=== PATIENT | female | born 1990 | race Two or more races ===

== ENCOUNTER 2023-11-06 14:01 | Outpatient (REF) | payer OTHER, SELFPAY | END 2023-11-06 14:02 | disposition home or self-care (01) | LOC: LAB 14:01 | PROVIDERS: Visit Provider Obstetrics & Gynecology | DX: N92.0 Excessive and frequent menstruation with regular cycle (principal) | CPT/HCPCS: 88305 ==

== ENCOUNTER 2023-11-17 13:21 | Outpatient (OUT) | payer OTHER, SELFPAY ==
--- NOTE | 2023-11-17 13:52 | PM.PRESUREVA ---
History of Present Illness History of Present Illness Chief complaint: REQ STERILIZATION, PELVIC PAIN, ABN UTERINE BLEEDI Narrative: Patient presents for preadmission testing. Please see HPI from Dr. Issa dated 11/06/2023. Review of Systems ROS Narrative REVIEW OF SYSTEMS: Negative except as stated in HPI, ten or more systems reviewed. Constitutional: No fever , chills, weakness ENT: No sore throat or epistaxis Cardiovascular: No edema, chest pain, palpitations, or activity intolerance Respiratory: No shortness of breath, cough, or wheezing Musculoskeletal: No joint pain or swelling Genitourinary: No dysuria or hematuria Neurological: No numbness, tingling, weakness, or headache Psychiatric: No mood changes PFSH PFS Medical History (Updated 11/17/23 @ 13:43 by Vivian Bledsoe NP) PTSD (post-traumatic stress disorder) ?F43.10 - Post-traumatic stress disorder, unspecified (ICD-10) Panic attacks ?F41.0 - Panic disorder [episodic paroxysmal anxiety] (ICD-10) COVID-19 ?U07.1 - COVID-19 (ICD-10) Pneumonia ?J18.9 - Pneumonia, unspecified organism (ICD-10) Migraine ?G43.909 - Migraine, unspecified, not intractable, without status migrainosus (ICD-10) Kidney stones ?N20.0 - Calculus of kidney (ICD-10) Bipolar 1 disorder ?F31.9 - Bipolar disorder, unspecified (ICD-10) HPV (human papilloma virus) infection ?B97.7 - Papillomavirus as the cause of diseases classified elsewhere (ICD-10) Breast lump ?N63.0 - Unspecified lump in unspecified breast (ICD-10) Pelvic pain ?R10.2 - Pelvic and perineal pain (ICD-10) Abnormal uterine bleeding (AUB) ?N93.9 - Abnormal uterine and vaginal bleeding, unspecified (ICD-10) Menorrhagia ?N92.0 - Excessive and frequent menstruation with regular cycle (ICD-10) Request for sterilization ?Z30.2 - Encounter for sterilization (ICD-10) Surgical History (Updated 11/17/23 @ 13:32 by Vivian Bledsoe NP) History of cholecystectomy ?Z90.49 - Acquired absence of other specified parts of digestive tract (ICD-10) H/O breast biopsy ?Z98.890 - Other specified postprocedural states (ICD-10) Family History (Updated 11/17/23 @ 13:43 by Vivian Bledsoe NP) Other Breast cancer Family history of diabetes mellitus Family history of heart disease Family history of hypertension Social History (Updated 11/17/23 @ 13:40 by Vivian Bledsoe NP) Within the past year, how often did you have a drink containing alcohol: monthly or less Smoking status: Never smoker Non-prescribed substance use: denies use Previous occupational history: [employer] Highest level of school completed/degree received: high school graduate Meds Home Medications and Allergies Home Medications Medication Instructions Recorded Confirmed Type divalproex 500 mg tablet,delayed 500 mg PO DAILY 11/17/23 11/17/23 History release (Depakote) norgestimate 0.25 mg-ethinyl 1 tab PO DAILY 11/17/23 11/17/23 History estradiol 35 mcg tablet (Estarylla) Allergies Allergy/AdvReac Type Severity Reaction Status Date / Time No Known Drug Allergies Allergy Verified 11/17/23 13:37 Exam Narrative Exam Narrative: Constitutional: Awake, alert, comfortable, well-appearing, nontoxic, interactive, vital signs as charted Head: Normocephalic, atraumatic Neck: Supple, normal appearance, normal range of motion, no meningeal signs, no lymphadenopathy Respiratory: No respiratory distress, breath sounds clear Cardiovascular: Regular rate and rhythm, strong and regular heart tones Abdomen: Nontender, normal bowel sounds, soft, no CVA tenderness Musculoskeletal: Normal gait, no swelling or edema Skin: No rashes or induration, no lesions, only visible skin inspected Neuro: No neurological deficits, normal sensation Psychiatric: Oriented ?3, normal affect Assessment and Plan Assessment and Plan (1) Abnormal uterine bleeding (AUB): (2) Menorrhagia: (3) Request for sterilization: (4) Pelvic pain: Plan Robot assisted Bilateral laparoscopic salpingectomy, endometrial ablation, [place] scheduled with Dr. Issa 12/01/2023.
== END 2023-11-17 13:22 | disposition home or self-care (01) ==
LOC: PST 13:22
PROVIDERS: Visit Provider Obstetrics & Gynecology
DX: Z01.818 Encounter for other preprocedural examination (principal); R10.2 Pelvic and perineal pain; N92.0 Excessive and frequent menstruation with regular cycle; N93.9 Abnormal uterine and vaginal bleeding, unspecified
CPT/HCPCS: G0463

== ENCOUNTER 2023-11-29 10:29 | Day surgery (SDC) | payer OTHER, SELFPAY ==
[2023-11-17 13:51] VITALS: BP 125/82; PULSE 82; RESP 16; TEMP 36.4; O2SAT 97; BMI 28.9
[2023-11-29] VITALS (11 sets, daily range): BP systolic 96–127; BP diastolic 60–95; PULSE 74–113; RESP 13–25; TEMP 36.6–36.9; O2SAT 92–98; BMI 26.8
--- OUTSIDE RECORDS SUMMARY | 2023-11-29 10:33 | XMS_ITS | CCD ---
Author Name Unknown Address [address] [place] [address] Organization [facility] Care Team Providers Care Celery Tier Name Role Phone YvesusamaDO Vishnu reddy Attending Provider [phone] REYNA Catalan Primary Care Provider STEPHANIE CATALAN Primary Care Unavailable ALAYNA, STEPHANIE Admitting Unavailable ALAYNA, STEPHANIE Attending Unavailable ALAYNA, STEPHANIE Primary Care Unavailable ALAYNA, STEPHANIE Admitting Unavailable ALAYNA, STEPHANIE Attending Unavailable ALAYNA, STEPHANIE Consulting Unavailable ALAYNA, STEPHANIE Primary Care Unavailable ALAYNA, STEPHANIE Admitting Unavailable ALAYNA, STEPHANIE Attending Unavailable ALAYNA, STEPHANIE Consulting Unavailable ALAYNA, STEPHANIE Primary Care Unavailable ALAYNA, STEPHANIE Admitting Unavailable ALAYNA, STEPHANIE Attending Unavailable ALAYNA, STEPHANIE S Primary Care Unavailable MARIBETH SINGER Attending Unavailable MARIBETH SINGER Attending Unavailable MARIBETH SINGER Referring Unavailable ALAYNA, STEPHANIE S Primary Care Unavailable TeresaStephanie coronel Unavailable SHAUNA ISSA Attending Unavailable SHAUNA ISSA Attending Unavailable ALLAN WEBB Attending Unavailable REYNA Catalan Primary Care Provider Shauna Issa Attending Provider [phone] Stephanie Catalan Primary Care Unavailable Shauna Issa Attending Unavailable Shauna Issa Admdonald Unavailable Medications Current Medications Medication Drug Class(es) Dates Sig (Normalized) Sig (Original) [id number] actuat albuterol 0.09 mg/actuat metered dose inhaler (2 sources) beta2-Adrenergic Agonist Start: 10-04-2023 take 2 puff(s) by inhalation four times daily as needed Albuterol Sulfate HFA 108 (90 Base) MCG/ACT 2 puffs Inhalation 4 times a day prn Sep, Active take 2 puff(s) by mo uth every four hours as needed for wheezing Albuterol Sulfate HFA 108 (90 Base) MCG/ACT INHALE 2 PUFFS BY MOUTH EVERY 4 HOURS NEEDED FOR WHEEZING Inhalation for 16 Days Active amoxicillin 875 mg / clavulanate 125 mg oral tablet (1 source) Penicillin-class Antibacterial Start: 10-04-2023 take 1 tablet by mouth every twelve hours Amoxicillin-Pot Clavulanate 875-125 MG 1 tablet Orally every 12 hrs for 10 day(s) Sep, Active benzonatate 200 mg oral capsule (1 source) Non-narcotic Antitussive Start: 10-04-2023 take 1 capsule by mouth every eight hours Benzonatate 200 MG 1 capsule Orally Three times a day Sep, Active codeine phosphate 2 mg/ml / guaiFENesin 20 mg/ml oral solution (1 source) Opioid Agonist guaiFENesin-Code ine 100-10 MG/5ML TAKE 5 ML BY MOUTH THREE TIMES DAILY FOR UP TO 5 DAYS NEEDED FOR COUGH Oral for 8 Days Active estarylla 0.25-35 mg-mcg tablet (1 source) Progestin, Estrogen take 1 tablet by mouth in the morning Estarylla 0.25-35 MG-MCG TAKE 1 TABLET BY MOUTH IN THE MORNING Oral for 84 Days Active lamoTRIgine (1 source) Mood Stabilizer, Anti-epileptic Agent LaMICtal Active phentermine hydrochloride 37.5 mg oral tablet (1 source) Sympathomimetic Amine Anorectic take 1 tablet by mouth once daily before breakfast Phentermine HCl 37.5 MG TAKE 1 TABLET BY MOUTH EVERY DAY BEFORE BREAKFAST Oral for 30 Days Active predniSONE 20 mg oral tablet (2 sources) Start: 10-04-2023 take 2 tablets by mouth every twenty-four hours predniSONE 20 MG 2 tablets Orally Once a day for 5 Sep, Active predniSONE 10 MG Oral for 5 Days Active Completed/Discontinued Medications Medication Drug Class(es) Dates Sig (Normalized) Sig (Original) hydrocortisone 10 mg/ml / neomycin 3.5 mg/ml / polymyxin b 13535 unt/ml otic solution (1 source) Aminoglycoside Antibacterial, Polymyxin-class Antibacterial, Corticosteroid Start: 02-22-2021 Neomycin-Polymyx in-HC 3.5-52398-5 4 drops into affected ear Otic Three times a day for 7 day(s) Feb, Not-Taking/PRN Levonorgestrel (1 source) Progestin, Progestin-containing Intrauterine Device Mirena Not-Taking/PRN oseltamivir 75 mg oral capsule (1 source) Neuraminidase Inhibitor Start: 09-04-2018 take 1 capsule by mouth every twelve hours Tamiflu 75 MG 1 capsule Orally Twice a day for 5 day(s) Aug, Not-Taking/PRN Problems Problem Classification Problem Date Documented Da te Episodic/Chronic Acute bronchitis (1 source) Acute bronchitis, unspecified Episodic Cardiac dysrhythmias (5 sources) Tachycardia, unspecified; Translations: [TACHYCARDIA UNSPECIFIED] Onset: 07-01-2022 Episodic Other lower respiratory disease (1 source) Cough Onset: 09-26-2023 Episodic Otitis media and related conditions (1 source) Otitis media, unspecified, left ear Episodic Pneumonia (except that caused by tuberculosis or sexually transmitted disease) (1 source) Pneumonia, unspecified organism; Translations: [Pneumonia, unspecified organism] Onset: 09-26-2023 Episodic Unclassified (1 source) COUGH, CONGESTION, VOMITING Onset: 09-26-2023 Results Test Name Value Interpretation Reference Range Facility [facility] 11-06-2023 L Specimen: [id number] Received: 11/07/23 Status: BRANDON Meeks Num: [id number] Spec Type: Surgical Subm Dr: Shauna Issa Tissues: A Endometrium - Biopsy (EMB) Procedures: HE/2, Gross/Micro L4 Age/ Patient Sex Location Account Attending Physician Liv Fortune 33/F LABELL [id number] Shauna Issa SPEC NUM: [id number] RECD: 11/07/23 STATUS: BRANDON MEEKS NUM: [id number] LUDWIG: 11/06/23- SUBM DR: Shauna Issa ENTERED: 11/07/[address]: Modesta,Lab SPEC TYPE: Surgical DEPT: MARICRUZ OLIVA ORDERED: HE/2, Gross/Micro L4 ORDERED: HE/2, Gross/Micro L4 Pathological Diagnosis Endometrium, Curettage: Chronic endometritis with Stromal Breakdown. Clinical Information Menorrhagia Gross Description Received in formalin labeled with the patient's name, date of and endometrial biopsy (per requisition) is a 3.0 x 2.5 x 0.2 cm aggregate of pale-meek tissue fragments. Entirely submitted in one cassette labeled A1. CPT Codes 98370 ---- ---- Specimen: [id number] Received: 11/07/23 Status: BRANDON Meeks Num: [id number] Spec Type: Surgical Subm Dr: Shauna Issa Tissues: A Endometrium - Biopsy (EMB) Procedures: HE/Ronnell, Gross/Micro L4 ---- Patient: Liv Fortune [id number] (Continued) ---- Signed (signature on file) Abeba Guzman MD 11/12/23 2142 [facility] CBC AND AUTO DIFFon 09-26-19 ABSOLUTE BASOPHIL 0.1 X10E9/L Normal 0.0-0.2 [facility] Comment on above: Performed By: #### 4 8066-5, CBCA #### [facility] [place] ([id number]) [address] [place] [address] ABSOLUTE NEUTROPHIL 10.2 X10E9/L High 1.5-6.6 [facility] Comment on above: Performed By: #### 4 8066-5, CBCA #### [facility] [place] ([id number]) [address] [place] [address] 28847 Basophils/100 WBC (Bld) 0.5 % Normal [facility] Comment on above: Performed By: #### 4 8066-5, CBCA #### [facility] [place] ([id number]) [address] [place] [address] 89426 Eosinophils (Bld) [#/Vol] 0.2 10*3/uL Normal 0.0-0.4 [facility] Comment on above: Performed By: #### 4 8066-5, CBCA #### [facility] [place] ([id number]) [address] [place] [address] 42112 Eosinophils/100 WBC (Bld) 1.3 % Normal [facility] Comment on above: Performed By: #### 4 8066-5, CBCA #### [facility] [place] ([id number]) [address] [place] [address] [place] [address] Erythrocyte distribution width (RBC) [Ratio] 12.0 % Normal 11.5-15.0 [facility] Comment on above: Performed By: #### 4 8066-5, CBCA #### [facility] [place] ([id number]) [address] [place] [address] 52116 Hematocrit (Bld) [Volume fraction] 40.6 % Normal 35-47 [facility] Comment on above: Performed By: #### 4 8066-5, CBCA #### [facility] [place] ([id number]) [address] [place] [address] 01537 Hemoglobin (Bld) [Mass/Vol] 14.0 g/dL Normal 11.7-15.5 [facility] Comment on above: Performed By: #### 4 8066-5, CBCA #### [facility] [place] ([id number]) [address] [place] [address] 56029 Lymphocytes (Bld) [#/Vol] 2.1 10*3/uL Normal 1.0-3.5 [facility] Comment on above: Performed By: #### 4 8066-5, CBCA #### [facility] [place] ([id number]) [address] [place] [address] 47756 Lymphocytes/100 WBC (Bld) 15.1 % Normal [facility] Comment on above: Performed By: #### 4 8066-5, CBCA #### [facility] [place] ([id number]) [address] [place] [address] 45815 MCH (RBC) [Entitic mass] 31.4 pg Normal 27-34 [facility] Comment on above: Performed By: #### 4 8066-5, CBCA #### [facility] [place] ([id number]) [address] [place] [address] 84951 MCHC (RBC) [Mass/Vol] 34.4 g/dL Normal 32-36 [facility] Comment on above: Performed By: #### 4 8066-5, CBCA #### [facility] [place] ([id number]) [address] [place] [address] 03649 MCV (RBC) [Entitic vol] 91 fL Normal 80-100 [facility] Comment on above: Performed By: #### 4 8066-5, CBCA #### [facility] [place] ([id number]) [address] [place] [address] 23712 Monocytes (Bld) [#/Vol] 1.2 10*3/uL High 0-0.9 [facility] Comment on above: Performed By: #### 4 8066-5, CBCA #### [facility] [place] ([id number]) [address] [place] [address] 35816 Monocytes/100 WBC (Bld) 8.6 % Normal [facility] Comment on above: Performed By: #### 4 8066-5, CBCA #### [facility] [place] ([id number]) [address] [place] [address] 66292 Neutrophils/100 WBC (Bld) 74.5 % Normal [facility] Comment on above: Performed By: #### 4 8066-5, CBCA #### [facility] [place] ([id number]) [address] [place] [address] 74297 Platelet mean volume (Bld) [Entitic vol] 8.3 fL Normal 7-12 [facility] Comment on above: Performed By: #### 4 8066-5, CBCA #### [facility] [place] ([id number]) [address] [place] [address] 17101 Platelets (Bld) [#/Vol] 301 10*3/uL Normal 150-450 [facility] Comment on above: Performed By: #### 4 8066-5, CBCA #### [facility] [place] ([id number]) [address] [place] [address] 94303 RBC COUNT 4.45 X10E12/L Normal 3.80-5.20 [facility] Comment on above: Performed By: #### 4 8066-5, CBCA #### [facility] [place] ([id number]) [address] [place] [address] 58974 WBC (Bld) [#/Vol] 13.7 10*3/uL High 4.0-11.0 [facility] Comment on above: Performed By: #### 4 8066-5, CBCA #### [facility] [place] ([id number]) [address] [place] [address] 98628 COMPREHENSIVE METABOLIC PANE Eddie 09-26-2023 Albumin [Mass/Vol] 3.7 g/dL Normal 3.2-5.3 [facility] Comment on above: Performed By: #### Jenny FORTUNE, 0-3 #### [facility] [place] ([id number]) [address] [place] [address] 57051 ALP [Catalytic activity/Vol] 77 U/L Normal 39-130 [facility] Comment on above: Performed By: #### Jenny FORTUNE, 0-3 #### [facility] [place] ([id number]) [address] [place] [address] 77263 ALT [Catalytic activity/Vol] 21 U/L Normal 0-31 [facility] Comment on above: Performed By: #### Jenny FORTUNE, 3040-3 #### [facility] [place] ([id number]) [address] [place] [address] 05208 Anion gap [Moles/Vol] 12 mmol/L Normal 5-15 [facility] Comment on above: Performed By: #### Jenny FORTUNE, 3040-3 #### [facility] [place] ([id number]) [address] [place] [address] 88511 AST [Catalytic activity/Vol] 22 U/L Normal 0-41 [facility] Comment on above: Performed By: #### Jenny FORTUNE, 0-3 #### [facility] [place] ([id number]) [address] [place] [address] 46916 Bilirubin [Mass/Vol] 0.5 mg/dL Normal 0.3-1.2 [facility] Comment on above: Performed By: #### Jenny FORTUNE, 3039-3 #### [facility] [place] ([id number]) [address] [place] [address] 98759 Calcium [Mass/Vol] 8.8 mg/dL Normal 8.5-10.5 [facility] Comment on above: Performed By: #### Jenny FORTUNE, 3039-11 #### [facility] [place] ([id number]) [address] [place] [address] 99577 Chloride [Moles/Vol] 98 mmol/L Normal 98-109 [facility] Comment on above: Performed By: #### Jenny FORTUNE, 3 #### [facility] [place] ([id number]) [address] [place] [address] 32924 CO2 [Moles/Vol] 24 mmol/L Normal 22-32 [facility] Comment on above: Performed By: #### Jenny FORTUNE, 3 #### [facility] [place] ([id number]) [address] [place] [address] 77199 Creatinine [Mass/Vol] 0.61 mg/dL Normal 0.40-1.00 [facility] Comment on above: Result Comment: METH OD TRACEABLE TO IDMS STANDARD Performed By: #### Jenny FORTUNE, 3 #### [facility] [place] ([id number]) [address] [place] [address] 85654 eGFR (CKD-EPI) NON-RACE DEPENDENT >90 Normal >59 [facility] Comment on above: Result Comment: Reported eGFR is based on the CKD-EPI 2020 equation that does not use a race coefficient. Performed By: #### Jenny FORTUNE, 3039-3 #### [facility] [place] ([id number]) [address] [place] [address] 34096 Glucose [Mass/Vol] 103 mg/dL High 65-99 [facility] Comment on above: Performed By: #### Jenny FORTUNE, 3040-3 #### [facility] [place] ([id number]) [address] [place] [address] 56960 Potassium [Moles/Vol] 3.4 mmol/L Low 3.5-5.0 [facility] Comment on above: Performed By: #### Jenny FORTUNE, 3040-3 #### [facility] [place] ([id number]) [address] [place] [address] 32687 Protein [Mass/Vol] 7.2 g/dL Normal 6.0-8.0 [facility] Comment on above: Performed By: #### Jenny FORTUNE, 3040-3 #### [facility] [place] ([id number]) [address] [place] [address] 42028 Sodium [Moles/Vol] 134 mmol/L Normal 134-146 [facility] Comment on above: Performed By: #### Jenny FORTUNE, 3040-3 #### [facility] [place] ([id number]) [address] [place] [address] 80152 Urea nitrogen [Mass/Vol] 10 mg/dL Normal 5-23 [facility] Comment on above: Performed By: #### Jenny FORTUNE, 3040-3 #### [facility] [place] ([id number]) [address] [place] [address] 84287 Fibrin D-dimer DDU (PPP) [Ma ss/Vol]on 09-26-2023 D DIMER 194 ng/mL DDU Normal <255 [facility] Comment on above: Result Comment: Results <255 ng/mL DDU: The presence of a VTE can safely be excluded with a negative D-Dimer result and Wells score. A negative result doesn't exclude the possibility of DIC. The test be repeated along with other diagnostic tests if the patient's symptoms persist or worsen. [email or web address] Performed By: #### 4 8066-5, CBCA #### [facility] [place] ([id number]) [address] [place] [address] LIPASEon 09-26-2023 Lipase [Catalytic activity/Vol] 32 U/L Normal 17-40 [facility] Comment on above: Performed By: #### C MP, 3040-3 #### [facility] [place] ([id number]) [address] [facility], [place] [address] SARS/FLU A+B/RSV by NAAT/Mol ecularon 09-26-2023 SARS/FLU A+B/RSV by NAAT/Molecular FLU A PCR Negative (qualifier value) FLU B PCR Negative (qualifier value) RSV by PCR Negative (qualifier value) SARS CoV 2 Not detected (qualifier value) NOTE The Xpert Xpress SARS-CoV-2/Flu/RSV Plus test is a rapid, multiplexed real-time RT-PCR test intended for the simultaneous qualitative detection and differentiation of SARS-CoV-2, influenza A, influenza B and respiratory syncytial virus (RSV) viral RNA from individuals suspected of respiratory viral infection consistent with COVID-19 by their healthcare provider. This test has not been validated in asymptomatic patients. The Xpert Xpress SARS-CoV-2 test is intended for use by qualified and trained operators who are performing tests using either [employer] or [employer] systems and is limited to laboratories that meet the CLIA requirements to perform high and moderate complexity tests. The Xpert Xpress SARS-CoV-2/Flu/RSV Plus is only for use under the Food and Drug Administration's Emergency Use Authorization. Results are for the simultaneous detection and differentiation of SARS-CoV-2, influenza A, influenza B and RSV nucleic acids in clinical specimens. SARS-CoV-2, influenza A, influenza B and RSV RNA identified by this test are generally detectable in upper respiratory samples during the acute phase of infection. Positive results are indicative of the presence of the identified virus, but do not rule out bacterial infection or co-infection with other pathogens not detected by this test. Clinical correlation with patient history and other diagnostic information is necessary to determine patient infection status. The agent detected may not be the definite cause of disease. Negative results do not preclude SARS-CoV-2, influenza A, influenza B and RSV infection and should not be used as the sole basis for treatment or other patient management decisions. Negative results must be combined with clinical observations, patient history and epidemiological information. An Invalid result may occur with specimen-associated inhibition unable to be resolved with specimen repeat. Fact Sheet for Healthcare Providers: https://www.fda.gov/dc parviz/130472/download Fact Sheet for Patients: https://www.fda.gov/dc parviz/451082/download Normal [facility] Comment on above: Performed By: #### C OVFLR #### [facility] [place] ([id number]) [address] [place] [address] 96972 XR CHEST 2 VWSon 09-26-2023 XR CHEST 2 VWS XR CHEST 2 VWS XR CHEST 2 VWS REASON FOR EXAM: 33 years old Female with cough and fever times several days. TECHNIQUE: PA and Lateral chest radiographs, 2 views. COMPARISON: None FINDINGS Cardiac silhouette and mediastinum are within normal limits. No pneumothorax or pleural effusion. Focal airspace opacity in the left midlung. IMPRESSION: * Focal airspace opacity in the left midlung which may represent atelectasis or pneumonia in the proper clinical setting. Approved by Resident Robbi Owen DO on 09/26/2023 2:12 AM I, Tunde Lakhani MD have personally reviewed the image(s) and agree with and/or edited the report Finalized by Tunde Lakhani MD on 09/26/2023 2:23 AM Normal [facility] CBC AUTO DIFFon 02-02-2022 BASO # 0.1 103/ul Normal 0.0-0.1 [facility] Comment on above: Performed By: #### C BC #### [facility] [address] [address] [address] Keke Vizcarra Basophils/100 WBC (Bld) 0.4 % Normal 0.2-2.0 [facility] Comment on above: Performed By: #### C BC #### [facility] [address] [place] [address] Dr. Keke Vizcarra EO # 0.1 103/ul Normal 0.0-0.7 [facility] Comment on above: Performed By: #### C BC #### [facility] [address] [place] [address] Dr. Keke Vizcarra Eosinophils/100 WBC (Bld) 0.9 % Normal 0.9-7.0 [facility] Comment on above: Performed By: #### C BC #### [facility] [address] [place] [address] Dr. Keke Vizcarra Erythrocyte distribution width (RBC) [Ratio] 11.6 % Normal 11.0-15.0 [facility] Comment on above: Performed By: #### C BC #### [facility] [address] [place] [address] Dr. Keke Vizcarra Hematocrit (Bld) [Volume fraction] 45.1 % Normal 36.0-48.0 [facility] Comment on above: Performed By: #### C BC #### [facility] [address] [place] [address] Dr. Keke Vizcarra Hemoglobin (Bld) [Mass/Vol] 15.2 g/dL Normal 12.0-16.0 [facility] Comment on above: Performed By: #### C BC #### [facility] [address] [place] [address] Dr. Keke Vizcarra IG # 0.04 10e3/ul Critically high 0.00-0.03 [facility] Comment on above: Performed By: #### C BC #### [facility] [address] [place] [address] Dr. Keke Vizcarra IG % 0.3 % Normal 0.0-0.5 [facility] Comment on above: Performed By: #### C BC #### [facility] [address] [place] [address] Dr. Keke Vizcarra LYMPH # 2.2 103/ul Normal 1.2-3.8 [facility] Comment on above: Performed By: #### C BC #### [facility] [address] [address] [address] Keke Vizcarra Lymphocytes/100 WBC (Bld) 16.4 % Critically low 20.5-60.0 [facility] Comment on above: Performed By: #### C BC #### [facility] [address] [address] [address] Keke Vizcarra MANUAL DIFF REQ NO Normal [facility] Comment on above: Performed By: #### C BC #### [facility] [address] [address] [address] Keke Vizcarra MCH (RBC) [Entitic mass] 31.5 pg Normal 26.7-34.0 [facility] Comment on above: Performed By: #### C BC #### [facility] [address] [place] [address] Dr. Keke Vizcarra MCHC (RBC) [Mass/Vol] 33.7 g/dL Normal 29.9-35.2 [facility] Comment on above: Performed By: #### C BC #### [facility] [address] [place] [address] Dr. Keke Vizcarra MCV (RBC) [Entitic vol] 93.6 fL Normal 81.0-99.0 [facility] Comment on above: Performed By: #### C BC #### [facility] [address] [place] [address] Dr. Keke Vizcarra MONO # 0.7 103/ul Normal 0.3-0.8 [facility] Comment on above: Performed By: #### C BC #### [facility] [address] [place] [address] Dr. Keke Vizcarra Monocytes/100 WBC (Bld) 5.0 % Normal 1.7-12.0 [facility] Comment on above: Performed By: #### C BC #### [facility] [address] [place] [address] Dr. Keke Vizcarra NEUT # 10.4 103/ul Critically high 1.4-6.5 [facility] Comment on above: Performed By: #### C BC #### [facility] [address] [place] [address] Dr. Keke Vizcarra Neutrophils/100 WBC (Bld) 77.0 % Critically high 43.0-75.0 [facility] Comment on above: Performed By: #### C BC #### [facility] [address] [place] [address] Dr. Keke Vizcarra Platelet mean volume (Bld) [Entitic vol] 10.0 fL Normal 9.5-13.5 [facility] Comment on above: Performed By: #### C BC #### [facility] [address] [place] [address] Dr. Keke Vizcarra PLT 433 103/ul Normal 150-450 [facility] Comment on above: Performed By: #### C BC #### [facility] [address] [place] [address] Dr. Keke Vizcarra RBC 4.82 106/ul Normal 4.20-5.40 [facility] Comment on above: Performed By: #### C BC #### [facility] [address] [place] [address] Dr. Keke Vizcarra WBC 13.5 103/ul Critically high 4.0-11.0 [facility] Comment on above: Performed By: #### C BC #### [facility] [address] [place] [address] Dr. Keke Vizcarra DEPAKENE/VALPROICon 02-03-20 DEPAKENE <3.0 Critically low 50.0-100.0 [facility] Comment on above: Performed By: #### C MP, VALP #### [facility] [address] [place] [address] Dr. Keke Vizcarra GLYCOHEMOGLOBIN A1Con 2021 ADA RECOMMENDATION SEE BELOW Normal [facility] Comment on above: Result Comment: ADA RECOMMENDED LIMIT 4.0 - 6.0 ADA THERAPEUTIC TARGET < 7.0 ACTION SUGGESTED > 7.0 Performed By: #### A 1C #### [facility] [address] [place] [address] Dr. Keke Vizcarra Glucose [Mass/Vol] 103 mg/dL Normal [facility] Comment on above: Performed By: #### A 1C #### [facility] [address] [address] [address] Keke Vizcarra HbA1c (Bld) [Mass fraction] 5.2 % Normal 4.5-6.2 [facility] Comment on above: Performed By: #### A 1C #### [facility] [address] [address] [address] Keke Vizcarra PROF 14(COMP METB)on 022 Albumin [Mass/Vol] 4.1 g/dL Normal 3.4-5.0 [facility] Comment on above: Performed By: #### C MP, VALP #### [facility] [address] [place] [address] Dr. Keke Vizcarra Albumin/Globulin [Mass ratio] 1.1 {ratio} Normal [facility] Comment on above: Performed By: #### C MP, VALP #### [facility] [address] [place] [address] Dr. Keke Vizcarra ALP [Catalytic activity/Vol] 88 U/L Normal 46-116 [facility] Comment on above: Performed By: #### C MP, VALP #### [facility] [address] [place] [address] Dr. Keke Vizcarra ALT [Catalytic activity/Vol] 30 U/L Normal 14-59 [facility] Comment on above: Performed By: #### C MP, VALP #### [facility] [address] [address] [address] Keke Vizcarra Anion gap [Moles/Vol] 15.0 mmol/L Normal [facility] Comment on above: Performed By: #### C MP, VALP #### [facility] [address] [address] [address] Keke Vizcarra AST [Catalytic activity/Vol] 19 U/L Normal 15-37 [facility] Comment on above: Performed By: #### C MP, VALP #### [facility] [address] [place] [address] Dr. Keke Vizcarra Bilirubin [Mass/Vol] 1.1 mg/dL Critically high 0.2-1.0 [facility] Comment on above: Performed By: #### C MP, VALP #### [facility] [address] [address] [address] Keke Vizcarar Calcium [Mass/Vol] 9.1 mg/dL Normal 8.5-10.1 [facility] Comment on above: Performed By: #### C MP, VALP #### [facility] [address] [address] [address] Keke Vizcarra Chloride [Moles/Vol] 104 mmol/L Normal 98-107 [facility] Comment on above: Performed By: #### C MP, VALP #### [facility] [address] [place] [address] Dr. Keke Vizcarra CO2 [Moles/Vol] 26.0 mmol/L Normal 21.0-32.0 [facility] Comment on above: Performed By: #### C MP, VALP #### [facility] [address] [place] [address] Dr. Keke Vizcarra Creatinine [Mass/Vol] 0.62 mg/dL Normal 0.55-1.02 [facility] Comment on above: Performed By: #### C MP, VALP #### [facility] [address] [place] [address] Dr. Keke Vizcarra EGFR-AF [place] >60 Normal >=60 [facility] Comment on above: Performed By: #### C MP, VALP #### [facility] [address] [place] [address] Dr. Keke Vizcarra EGFR-NON AF [place]ANI >60 Normal >=60 [facility] Comment on above: Performed By: #### C MP, VALP #### [facility] [address] [place] [address] Dr. Keke Vizcarra Globulin (S) [Mass/Vol] 3.8 g/dL Normal [facility] Comment on above: Performed By: #### C MP, VALP #### [facility] [address] [place] [address] Dr. Keke Vizcarra Glucose [Mass/Vol] 95 mg/dL Normal 74-106 [facility] Comment on above: Performed By: #### C MP, VALP #### [facility] [address] [place] [address] Dr. Keke Vizcarra Potassium [Moles/Vol] 4.0 mmol/L Normal 3.5-5.1 [facility] Comment on above: Performed By: #### C MP, VALP #### [facility] [address] [place] [address] Dr. Keke Vizcarra Protein [Mass/Vol] 7.9 g/dL Normal 6.4-8.2 [facility] Comment on above: Performed By: #### C MP, VALP #### [facility] [address] [place] [address] Dr. Keke Vizcarra Sodium [Moles/Vol] 141 mmol/L Normal 136-145 [facility] Comment on above: Performed By: #### C MP, VALP #### [facility] [address] [place] [address] Dr. Keke Vizcarra Urea nitrogen [Mass/Vol] 9.0 mg/dL Normal 7.0-18.0 [facility] Comment on above: Performed By: #### C MP, VALP #### [facility] [address] [place] [address] Dr. Keke Vizcarra Urea nitrogen/Creatinine [Mass ratio] 14.5 mg/mg Normal [facility] Comment on above: Performed By: #### C MP, VALP #### [facility] [address] [place] [address] Dr. Keke Vizcarra Diagnostic Mammogram, Bilate ral w/Mykel (3D)on 01-21-2022 Diagnostic Mammogram, Bilateral w/Mykel (3D) COMPARISON: Dating back to January 27, 2021 TECHNIQUE: 2D and 3D Tomosynthesis of the right and left breasts was performed. FINDINGS: Breast composition demonstrates scattered fibroglandular densities. RIGHT BREAST: Stable, unremarkable. LEFT BREAST: Increased size of the left periareolar mass corresponds with the palpable lump and the prior mass identified on the ultrasound of January 27, 2021 (5.0 x 8.0 x 6.0 cm). The majority of the margins are fairly well defined, some indistinct though likely obscured by dense tissue within the retroareolar region. No significant axillary lymphadenopathy. IMPRESSION: BI RADS 0 : ADDITIONAL IMAGING EVALUATION NEEDED. Correlate with the prior biopsy results, current increase in size noted. Board Certified Radiologist. Accredited by the ACR and FDA. MAMMOGRAPHY IS VERY IMPORTANT TO YOUR HEALTH. THE CURRENT [place] [employer] OF [employer] AND [employer]WORK GUIDELINES RECOMMENDS ANNUAL MAMMOGRAPHY BEGINNING AT AGE 40. THIS FACILITY USES A REMINDER SYSTEM TO ENSURE ALL PATIENTS RECEIVE REMINDER NOTIFICATIONS AT THE APPROPRIATE TIME BASED ON THE RECOMMENDATIONS OF THIS EXAM. Asymmetry: Visible on only one projection. Asymmetries that turning sander tender to be summation artifact are benign (BI-RADS 2). The BI-RADS [place] offers guidance regarding the other categories of asymmetries. Focal Asymmetry: Visible on two projections, involves less than one quadrant, lacks convex-outwards borders or is interspersed with fat. A solitary focal asymmetry (without architectural distortion, calcification, or underlying mass identified on the diagnostic mammography and ultrasound) is assessed as BI-RADS 3 (likely benign). Developing Asymmetry: Focal asymmetry that is new, larger, or more conspicuous than on prior examinations. A developing asymmetry, unless shown to be characteristically benign such as a cyst or ultrasound, is assessed BI-RADS 4 (suspicious). An exception would be if there is a clear benign explanation, such as recent surgery, trauma, or infection at that site. Global Asymmetry: Visible on two projections, involves more than one quadrant. Global asymmetry, in the absence of palpable correlate, is assessed BI-RADS 2 (benign). Report reported and signed by Bj Arnold on 01/26/2022 1104 The patient indicates no desire for additional MR Imaging. Given the increase in size on the current mammogram and prior biopsy results demonstrating benign breast tissue with no additional specific histopathology to account for a mass of this size. Recommend surgical consultation. CATEGORY 4b : SUSPICIOUS FINDINGS. MODERATE SUSPICION FOR MALIGNANCY. Recommend surgical consultation. Report reported and signed by Bj Arnold on 01/26/[address] [facility] [employer] Q - CHLAMYDIA/N.GONORRHOEAE RNA,TMA,PAP VIALon 01-12-2022 CHLAMYDIA TRACHOMATIS RNA, TMA, UROGENITAL Not detected Normal NOT DETECTED [facility] Comment on above: Order Comment: NXE Testing performed at: [facility], [facility], [address] [place] [address], [address] [place] [address], [address], Information Assistant: Hill Kaba MD [facility] Date/Time: [facility] Results Received Date/Time: [facility] Reported Date/Time: FASTING: UNKNOWN Result Comment: [QPT ] Performed By: #### 9 1414, 64997 #### [facility] [address] [place] [address] NEISSERIA GONORRHOEAE RNA, TMA, UROGENITAL Not detected Normal NOT DETECTED [facility] [facility] Comment on above: Order Comment: [facility] Testing performed at: [facility], [facility], [address] [place] [address], [address] [place] [address], [address] [place] [address], Information Assistant: Hill Kaba MD [facility] Date/Time: [facility] Results Received Date/Time: [facility] Reported Date/Time: FASTING: UNKNOWN Result Comment: [QPT ] Performed By: #### 9 1414, 94340 #### [facility] [address] [place] [address] Q - THINPREP(R) TIS AND HPV MRNA E6/E7 RFL HPV 16/18/45on 01-12-2022 CLINICAL INFORMATION: None given Normal [facility] Comment on above: Order Comment: [facility] Testing performed at: [facility], [facility], [address] [facility], [place], [address], Information Assistant: Cesilia Ferrari Testing performed at: [facility], [facility], [address] [place] [address], [address] [place] [address] - [facility] [place], [address], Information Assistant: Hill Kaba MD [facility] Date/Time: [facility] Results Received Date/Time: [facility] Reported Date/Time: FASTING: UNKNOWN Result Comment: [HFK ] Performed By: #### 9 1414, 44693 #### [facility] [address] [place] [address] COMMENT SEE NOTE Normal [facility] Comment on above: Order Comment: [facility] Testing performed at: [facility], [facility], [address] [facility], [facility] [address], [place], [address], Information Assistant: Cesilia Ferrari Testing performed at: [facility], [facility], [address] [facility], [address] [place] [address] - [address], [place], [address], Information Assistant: Hill Kaba MD [facility] Date/Time: [facility] Results Received Date/Time: [facility] Reported Date/Time: FASTING: UNKNOWN Result Comment: EXPL ANATORY NOTE: The Pap is a screening test for cervical cancer. It is not a diagnostic test and is subject to false negative and false positive results. It is most reliable when a satisfactory sample, regularly obtained, is submitted with relevant clinical findings and history, and when the Pap result is evaluated along with historic and current clinical information. [[facility]] Performed By: #### 9 1414, 79879 #### [facility] [address] [place] [address] Order Comment: [facility] Testing performed at: [facility], [facility], [address] [place] [address], [address] [place] [address], [place], [address], Information Assistant: Hill Kaba MD [facility] Date/Time: [facility] Results Received Date/Time: [facility] Reported Date/Time: FASTING: UNKNOWN Result Comment: The analytical performance characteristics of this assay, when used to test SurePath(TM) specimens have been determined by [facility]. The modifications have not been cleared or approved by the FDA. This assay has been validated pursuant to the CLIA regulations and is used for clinical purposes. For additional information, please refer to https://education.[employer].TapImmune/faq/NZN309 (This link is being provided for information/ educational purposes only.) NO COLLECTION DATE RECEIVED. WE HAVE USED THE DATE THE SPECIMEN WAS RECEIVED BY THIS LABORATORY THE COLLECTION DATE. IF THIS IS INCORRECT, PLEASE CONTACT CLIENT SERVICES. PHONE NUMBER: [phone] [QPT] COMMENT: SEE NOTE Normal [facility] Comment on above: Order Comment: [facility] Testing performed at: [facility], [facility], [address], [place], [address], Information Assistant: Cesilia Ferrari Testing performed at: [facility], [facility], [address] [place] [address], [address] [place] [address], [address] [place] [address], Information Assistant: Hill Kaba MD [facility] Date/Time: [facility] Results Received Date/Time: [facility] Reported Date/Time: FASTING: UNKNOWN Result Comment: This Pap test has been evaluated with computer assisted technology. Suggest clinical correlation and follow-up as clinically appropriate [K] Performed By: #### 9 1414, 28365 #### [facility] [address] [place] [address] ALLERGIST/IMMUNOLOGIST: SEE NOTE Normal [facility] Comment on above: Order Comment: [facility] Testing performed at: [facility], [facility], [address] [facility], [place], [place], [address] [place] [address], Information Assistant: Cesilia Ferrari Testing performed at: O, [facility], [address] [place] [address], [address] [place] [address], [address] [place] [address], Information Assistant: Hill Kaba MD [facility] Date/Time: [facility] Results Received Date/Time: [facility] Reported Date/Time: FASTING: UNKNOWN Result Comment: PCJ, SCT(ASCP) CT screening location: [place] [address]. [HFK] Performed By: #### 9 1414, 15097 #### [facility] [address] [place] [address] GENERAL CATEGORIZATION: EPITHELIAL CELL ABNORMALITY Abnormal [facility] Comment on above: Order Comment: [facility] Testing performed at: [facility], [facility] [place], [address], [address], [place], [address], Information Assistant: Cesilia Ferrari Testing performed at: [facility], [facility]-[address], [address], Information Assistant: Hill Kaba MD [facility] Date/Time: [facility] Results Received Date/Time: [facility] Reported Date/Time: FASTING: UNKNOWN Result Comment: [HFK ] Performed By: #### 9 1414, 68260 #### [facility] [address] [place] [address] HPV mRNA E6/E7 Not detected Normal Not Detected [facility] Comment on above: Order Comment: [facility] Testing performed at: [facility], [facility], [address] [facility], [facility] [place], [address], Information Assistant: Cesilia Ferrari Testing performed at: [facility], [facility], [address], Information Assistant: Hill Kaba MD [facility] Date/Time: [facility] Results Received Date/Time: [facility] Reported Date/Time: FASTING: UNKNOWN Result Comment: Meth odology: Service Tester-Mediated Amplification This assay detects E6/E7 viral messenger RNA (mRNA) from 14 high-risk HPV types (16,18,31,33,35,39,45,51,52,56,58,59,66,68). The analytical performance characteristics of this assay have been determined by [facility]. The modifications have not been cleared or approved by the FDA. This assay has been validated pursuant to the CLIA regulations and is used for clinical purposes. For additional information, please refer to http://education.[employer].TapImmune/faq/HSF745k5 (This link if provided for information/ educational purposes only.) [[facility]] Performed By: #### 9 1414, 46901 #### [facility] [address] [place] [address] INTERPRETATION/RESUL T: Atypical Squamous Cells of Undetermined Significance (ASC-US) Abnormal [facility] Comment on above: Order Comment: [facility] Testing performed at: [employer], [facility] [employer] [place], [facility] [address], [place], [address], Information Assistant: Cesilia Ferrari Testing performed at: [facility], [address] [place] [address], [address] [place] [address], [address] [place] [address], Information Assistant: Hill Kaba MD [facility] Date/Time: [facility] Results Received Date/Time: [facility] Reported Date/Time: FASTING: UNKNOWN Result Comment: [HFK ] Performed By: #### 9 1414, 43831 #### [facility] [address] [place] [address] LMP: NONE GIVEN Normal [facility] Comment on above: Order Comment: [facility] Testing performed at: [facility], [facility], [address] [place] [address], [facility] [place], [address], Information Assistant: Cesilia Ferrari Testing performed at: [facility], [facility], [address] [place] [address], [address] [place] [address], [address] [place] [address], Information Assistant: Hill Kaba MD [facility] Date/Time: [facility] Results Received Date/Time: [facility] Reported Date/Time: FASTING: UNKNOWN Result Comment: [HFK ] Performed By: #### 9 1414, 17673 #### [facility] [address] [place] [address] PATHOLOGIST: SEE NOTE Normal [facility] [facility] Comment on above: Order Comment: [facility] Testing performed at: [facility], [facility], [address] [place] [address], [facility] [address], [place], [address], Information Assistant: Cesilia Ferrari Testing performed at: [employer], [facility], [address] [place] [address], [address] [place] [address], [address] [place] [address], Information Assistant: Hill Kaba MD [facility] Date/Time: [facility] Results Received Date/Time: [facility] Reported Date/Time: FASTING: UNKNOWN Result Comment: Adrian York MD Board Certified in Anatomic Pathology and Cytopathology (electronic signature) For questions regarding this report call Anatomic Pathology at [phone] Mikey oYrk MD, [employer] [place], [place] [HFK] Performed By: #### 9 1414, 63755 #### [facility] [address] [place] [address] PREV. BX: NONE GIVEN Normal [facility] Comment on above: Order Comment: [facility] Testing performed at: [facility], [facility] [place] [place], [address], [address], [place], [address], Information Assistant: Cesilia Ferrari Testing performed at: [place], [facility], [address] [place] [address], [address] [place] [address], [address], Information Assistant: Hill Kaba MD [facility] Date/Time: [facility] Results Received Date/Time: [facility] Reported Date/Time: FASTING: UNKNOWN Result Comment: [HFK ] Performed By: #### 9 1414, 24489 #### [facility] Default [address] [place] [address] PREV. PAP: NONE GIVEN Normal [facility] Comment on above: Order Comment: [facility] Testing performed at: [facility], [facility] [place], [address], [address], [place], [address], Information Assistant: Cesilia Ferrari Testing performed at: [facility], [facility], [address] [place] [address], [address] [place] [address], [address], Information Assistant: Hill Kaba MD [facility] Date/Time: [facility] Results Received Date/Time: [facility] Reported Date/Time: FASTING: UNKNOWN Result Comment: [HFK ] Performed By: #### 9 1414, 82301 #### [facility] Default [address] [place] [address] SOURCE: None given Normal [facility] Comment on above: Order Comment: [facility] Testing performed at: [facility], [facility], [address], [address], [place], [address], Information Assistant: Cesilia Ferrari Testing performed at: [facility], [facility], [address] [place] [address], [address] [place] [address], [address] [place] [address], Information Assistant: Hill Kaba MD [facility] Date/Time: [facility] Results Received Date/Time: [facility] Reported Date/Time: FASTING: UNKNOWN Result Comment: [HFK ] Performed By: #### 9 1414, 37855 #### [facility] Default [address] [place] [address] STATEMENT OF ADEQUACY: SEE NOTE Normal [facility] Comment on above: Order Comment: [facility] Testing performed at: [facility], [facility], [address] [facility], [address], [place], [address], Information Assistant: Cesilia Ferrari Testing performed at: [facility], [facility], [address] [place] [address], [address] [place] [address], [address] [place] [address], Information Assistant: Hill Kaba MD [facility] Date/Time: [facility] Results Received Date/Time: [facility] Reported Date/Time: FASTING: UNKNOWN Result Comment: Sati sfactory for evaluation. Endocervical/transformation zone component present. [[facility]K] Performed By: #### 9 1414, 92353 #### [facility] [address] [place] [address] Vital Signs Date Time Vital Sign Value Performing Clinician Facility 10-04-2023 12:40-0500 Body height 144.78 cm Stephanie Moore Other [facility] 10-04-2023 12:40-0500 Body mass index (BMI) [Ratio] 28.13 kg/m2 Stephanie Moore Other [facility] Other 10-04-2023 12:40-0500 Body temperature 97.9 [degF] Stephanie Moore Other [facility] Other 10-04-2023 12:40-0500 Body weight 58.97 kg Stephanie Moore Other [facility] Other 10-04-2023 12:40-0500 Body weight 58.96 kg OCCUPATIONAL HEALTH NURSING DIRECTOR-C Stephanie Ovallesmer Work Phone: [facility] 10-04-2023 12:40-0500 Diastolic blood pressure 81 mm[Hg] Stephanie Moore Other [facility] 10-04-2023 12:40-0500 Respiratory rate 18 /min Stephanie Moore Other [facility] Other 10-04-2023 12:40-0500 SaO2% (BldA) [Mass fraction] 94 % Stephanie Moore Other [facility] [email or web address] Other 10-04-2023 12:40-0500 Systolic blood pressure 120 mm[Hg] Stephanie Moore Other [facility] 02-11-2022 09:50-0400 Body temperature 98.4 [degF] DO Vishnu Itzkowitz Work Phone: [facility] 02-11-2022 09:50-0400 Diastolic blood pressure 74 mm[Hg] DO Vishnu Itzkowitz Work Phone: [facility] 02-11-2022 09:50-0400 Heart rate 94 /min DO Vishnu Itzkowitz Work Phone: [facility] 02-11-2022 09:50-0400 Respiratory rate 16 /min DO Vishnu Itzkowitz Work Phone: [facility] 02-11-2022 09:50-0400 SaO2% (BldA) [Mass fraction] 98 % DO Vishnu Itzkowitz Work Phone: [facility] 02-11-2022 09:50-0400 Systolic blood pressure 124 mm[Hg] DO Vishnu Santana Work Phone: [facility] Encounters Encounter Date Encounter Type Care Provider Facility Start: 11-07-2023 End: 11-07-2023 ambulatory Stephanie Catalan Facility:[facility] Start: 11-07-2023 End: 11-07-2023 ambulatory OCCUPATIONAL HEALTH NURSING DIRECTOR-C Stephanie Catalan Work Phone: [facility] Work Phone: Start: 11-07-2023 End: 11-07-2023 Departed Referred OCCUPATIONAL HEALTH NURSING DIRECTOR-C Stephanie Catalan Work Phone: [facility] Start: 11-06-2023 End: 11-06-2023 ambulatory SHAUNA JOSEPH Not Available Start: 10-09-2023 End: 10-09-2023 ambulatory SHAUNA JOSEPH Not Available Start: 10-04-2023 (URG) Urgent Care Visit Stephanie grant [facility] Start: 10-04-2023 End: 10-04-2023 ambulatory Stephanie Moore Other [facility] Other Start: 10-04-2023 End: 10-04-2023 Patient encounter procedure OCCUPATIONAL HEALTH NURSING DIRECTOR-C Stephanie Catalan Work Phone: [facility]- Start: 09-26-2023 End: 09-27-2023 Emergency department patient visit MARIBETH Luis [facility] Start: 08-14-2023 End: 08-15-2023 ambulatory ALLAN WEBB Not Available Start: 09-19-2022 ambulatory STEPHANIE CATALAN Facility: [facility] Start: 07-01-2022 End: 07-02-2022 ambulatory STEPHANIE CATALAN Facility:[facility] Start: 02-11-2022 End: 02-11-2022 Admission to same day surgery center DO Vishnu Santana Work Phone: [facility] Start: 02-10-2022 ambulatory STEPHANIE CATALAN Facility: [facility] Start: 02-08-2022 Encounter for genera l adult medical examination without abnormal findings STEPHANIE CATALAN [facility] Start: 02-02-2022 End: 02-03-2022 ambulatory STEPHANIE CATALAN Facility:[facility] Start: 02-02-2022 End: 02-03-2022 Encounter for general adult medical examination without abnormal findings STEPHANIE CATALAN Facility:[facility]1 Procedures Date Procedure Procedure Detail Performing Clinician Start: 02-11-2022 Ultrasonography of l eft breast DO [facility] Work Phone: Start: 02-11-2022 Mammography of left breast DO [facility] Work Phone: Start: 02-11-2022 Ultrasonography of limb DO [employer] Work Phone: Start: 02-11-2022 Core needle biopsy o f breast using ultrasound guidance DO Vishnu Itzkowitz Work Phone: Payers Date Payer Category Payer Unknown [id number] 2012 Unknown [id number] 1988 Unknown [id number] 2.16.84 [id number] 1988 Unknown [id number] 2.16.84 [id number] 1988 Unknown [id number] 2.16.84 [id number] 1988 Unknown [id number] 2.16.84 [id number] 1988 Unknown [id number] 2.16.84 0.1.335629.3.579.2.1286 1988 Unknown [id number] 2.16.84 0.1.845773.3.579.2.1286 1988 Unknown [id number] 2.16.84 0.1.091522.3.579.2.1259 1988 Unknown [id number] 2.16.84 [id number] 1988 Unknown [id number] 2.16.840 .[id number] 1959 Self-pay [id number] Unknown [id number] 2.16 [id number] Unknown [id number] 2.16.8 [id number] Social History Date Type Detail Facility Tobacco smoking status NHIS Unknown if ever smoked [facility] Work Phone: Start: 1990 Sex Assigned At Female F [facility] Sex Assigned At Sex Assigned At [facility] [email or web address] Other Start: 09-04-2018 Tobacco smoking status NHIS Never smoked tobacco (finding) [facility] Evaluation note 10-04-2023 Note Date & Type Note Facility 10-04-2023 Evaluation note Encounter Date Diagnosis Assessment Notes Sep, Left otitis media, unspecified otitis media type (ICD-10 - H66.92) Drink plenty fluids, get plenty of rest. Take the amoxicillin with clavulanate and prednisone as prescribed until gone. Take the benzonatate capsules as prescribed as needed for cough. Use your albuterol inhaler as prescribed as needed for cough or shortness of breath. Take Tylenol or Motrin as needed for aches pains or fevers. Follow-up with your family physician if no improvement in 2 to 3 days Sep, Acute bronchitis, unspecified organism (ICD-10 - J20.9) [facility] [email or web address] Other Evaluation note Note Date & Type Note Facility Evaluation note No assessment information availa [facility] Work Phone: History general Narrative - Reported Note Date & Type Note Facility History general Narrative - Reported Type Medical History anxiety Medical History bipolar Surgical History gall bladder Hospitalization History childbirth [facility] Other Summary Purpose Family History No Family History Records FoundNo Family History Records FoundNo Family History Records FoundNo Family History Records FoundNo Family History Records Found Advance Directives No Advanced Directives Records Found Advance Directive Response Recorded Date/ Time Advance Directives No February 09 2 3:28pm Advance Directive Response Recorded Date/ Time Advance Directives No February 09 2 2:28pm Chief Complaint and Reason for Visit Chief Complaint breast mass Chief Complaint Cough, Left Ear Ache , Diagnosed With Pne Unknown Additional Source Comments INFORMATION SOURCE (unrecogn ized section and content) DATE CREATED AUTHOR 01/28/2022 [facility] dical Specialist DATE CREATED AUTHOR AUTHOR'S ORGANIZ ATION 09/19/2022 [facility] DATE CREATED AUTHOR AUTHOR'S ORGANIZ ATION 10/01/2023 [facility] DATE CREATED AUTHOR AUTHOR'S ORGANIZ ATION 11/07/2023 [facility] dical Specialists [facility] DATE CREATED AUTHOR AUTHOR'S ORGANIZ ATION 11/14/2023 [facility] Care Teams (unrecognized sec tion and content) Team Status: Inactive Member Role Status Dates Vishnu Santana DO Attending Provider Active REYNA Gaxiola Primary Care Provider Active Team Status: Active Member Role Status Dates REYNA Gaxiola Primary Care Provider Active Team Status: Inactive Member Role Status Dates REYNA Patel Attending Provider Active S tart: October 04, 2023 End: October 04, 2023 Team Status: Inactive Member Role Status Dates REYNA Gaxiola Primary Care Provider Active Start: November 07, 2023 End: November 07, 2023 Shauna Issa Attending Provider Active Start: Bernadette marcelo 2023 End: November 07, 2023 Goals (unrecognized section and content) Goals may be documented in a n alternate sectionNo InformationGoals may be documented in an alternate section REASON FOR VISIT (unrecogniz ed section and content) COUGH, LEFT EAR ACHE, DIAGNO SED WITH PNEUMONIA 09/26, FINISHED ANTIBIOTIC AND STEROID FOR RECORDS PERTAINING TO PATIENTS WHO ARE OR HAVE BEEN ENROLLED IN A CHEMICAL DEPENDENCY/SUBSTANCEABUSE PROGRAM, SOME INFORMATION MAY BE OMITTED. This clinical summary was aggregated from multiple sources. Caution should be exercised in using it in the provision of clinical care. This summary normalizes information from multiple sources, and as a consequence, information in this document may materially change the coding, format and clinical context of patient data. In addition, data may be omitted in some cases. CLINICAL DECISIONS SHOULD BE BASED ON THE PRIMARY CLINICAL RECORDS. [facility]. provides no warranty or guarantee of the accuracy or completeness of information in this document.
[2023-11-29 10:40] LABS: Basophils Absolute Auto 0.1 10^3/uL (0.0-0.1); Basophils Percent Auto 0.6 % (0.2-2.0); Eosinophils Absolute Auto 0.2 10^3/uL (0.0-0.7); Eosinophils Percent Auto 1.4 % (0.9-7.0); Hematocrit 40.2 % (36.0-48.0); Immature Granulocytes Abs Auto 0.05 10^3/uL (0.00-0.03); Immature Granulocytes Pct Auto 0.5 % (0.0-0.5); Lymphocytes Absolute Auto 2.3 10^3/uL (1.2-3.8); Lymphocytes Percent Auto 21.5 % (20.5-60.0); Mean Corpuscular HGB Conc 34.8 g/dL (29.9-35.2); Mean Corpuscular Volume 89.1 fL (81.0-99.0); Mean Platelet Volume 9.5 fL (9.5-13.5); Monocytes Absolute Auto 0.6 10^3/uL (0.3-0.8); Monocytes Percent Auto 5.5 % (1.7-12.0); Neutrophils Absolute Auto 7.4 10^3/uL (1.4-6.5); Neutrophils Percent Auto 70.5 % (43.0-75.0); Platelet Count 387 10^3/uL (150-450); Red Blood Count 4.51 10^6/uL (4.20-5.40); Red Cell Distribution Width 11.9 % (11.0-15.0); White Blood Count 10.5 10^3/uL (4.0-11.0)
[2023-11-29] MEDS: LACTATED RINGER'S SOLUTION 1,000 ML 50 ML IV (10:55)
[2023-11-29 11:04] LABS: HCG Quantitative <1 mIU/mL
--- NOTE | 2023-11-29 13:22 | PM.ONB ---
Brief Operative Note Date of procedure: 11/29/23 Pre-op diagnosis: menorrhagia, desires permanent sterilization Post-op diagnosis: same as pre-op Procedure: NAME OF PROCEDURE: robotic assisted Laparoscopic bilateral salpingectomy, with America endometrial ablation with hysteroscopy PROCEDURE: The patient was taken back to the OR where she was prepped and draped in the normal sterile fashion after being placed in the dorsal lithotomy position, after being placed under general anesthesia without difficulty. a weighted speculum was then placed into the vagina. Pap and endometrial bx were performed without difficultyThe anterior lip was grasped with a single tooth tenaculum. The patient was then sounded to approximatley 9cm. The patient was gently sounded using Hegar dilators and the hysteroscope was passed through the cervix into the uterus where both ostia were seen. No gross evidence of polyps, fibroids or malignancy. The cervical length was noted to be 4cm. The America ablation apparatus was set to approximately 5cm in length. This was placed in through the cervix and into the uterus. After the seal was tested, at that time the total ablation of 120 seconds was performed with the America without difficulty. All instruments were removed from the vagina. A wet sponge stick was placed into the patient's vagina. Attention was then turned to the patient's abdomen, where a scalpel was used to make a small infraumbilical incision. The S retractors were then used to dissect the underlying layers until the fascia could be seen. The fascia was then grasped with Norma clamps and tented up. A knife was then used to make a small incision to the fascia. The muscle was identified, at that time two sutures of #0 Vicryl on a GI needlewas then used and placed through the fascia. The peritoneum was then identified and entered bluntly. The 10-4 Mauro was then placed into the patient's abdomen. This was confirmed with direct visualization of the bowel, using the laparoscope. The patient's abdomen was then insufflated using approximately 4 liters of CO2 gas. Survey of the patient's abdomen demonstrated normal appearing ovaries, uterus and tubes. A second and third lateral robotic ports, which was 8mm in size, was then placed laterally after incision was made in the skin under direct visualization. the robotic arms were engaged. The patient's tube on the patient's right side was identified. The tube was then tented up using a grasper. The ligasure was used to transect and coagulate the mesosalpingx from the fimbriated end to the insertion at the uterus, the tube was amputated and removed in its entirety.? Excellent hemostasis was noted. ?This was performed on the contralateral sideas well. The lateral ports were then moved under direct visualization with excellent hemostasis. The abdomen was deinsufflated. All instruments were removed from the patient's abdomen. The fascia was closed using the #0 Vicryl on GI needle. The skin was closed using 4-0 Vicryl subcuticularly. All instruments were removed from the patient's vagina as well. The patient was taken out of the dorsal lithotomy position and placed in the supine position and taken to recovery in stable condition. Sponge, lap and needle counts were correct x2. ??? Anesthesia: ADAN Surgeon: [facility] Chief Financial Officer: Ebony Guillen Estimated blood loss (mL): 5 Pathology: other (tubes) Condition: stable Disposition: PACU
[2023-11-29] MEDS: HYDROCODONE/ACET 5-325 MG TABLET 1 TAB PO (14:00)
== END 2023-11-29 14:55 | disposition home or self-care (01) ==
PROVIDERS: PCP Nurse Practitioner Family; Visit Provider Obstetrics & Gynecology
PROC: (CPT 840; principal; 2023-11-29 12:00)
PROC: (CPT 840; 2023-11-29 12:00)
DX: Z30.2 Encounter for sterilization (principal); N92.0 Excessive and frequent menstruation with regular cycle; N93.9 Abnormal uterine and vaginal bleeding, unspecified; N83.8 Other noninflammatory disorders of ovary, fallopian tube and broad ligament; F41.0 Panic disorder [episodic paroxysmal anxiety]; Z86.16 Personal history of COVID-19; Z87.442 Personal history of urinary calculi; F31.9 Bipolar disorder, unspecified; Z90.49 Acquired absence of other specified parts of digestive tract
CPT/HCPCS: 58563; 58661; 36415; 84702; 85025; 88302; J1094; J1170; J2704

== ENCOUNTER 2025-04-17 05:47 | Emergency (ER) | payer OTHER, SELFPAY ==
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
--- OUTSIDE RECORDS SUMMARY | 2025-01-28 11:15 | XMS_ITS ---
Author Organization [facility] in [place] Address [address] [place] [address] Care Team Providers Care Time Clock Inspector Name Role Phone Stephanie Jimenez Primary Care Provider Allergies No Known Allergies REASON FOR VISIT FMLA paperwork renewal, Has been off of Adipex for about 3 weeks- wants to know if can still get it? Not currently taking Medications Medication SIG (Take, Route, Fr equency, Duration) Notes Start Date End Date Status Adipex-P 37.5 MG 1 tablet before norris kfast Orally Once a day for 30 days 01/28/2025 Active traZODone HCl 50 MG 1/2 tablet at bedtim e as needed Orally Once a day 11/23/2023 Active Vraylar 1.5 MG 1 capsule Orally Onc e a day for 90 days 12/29/2023 Active Social History Tobacco Use: Social History Observation Description Date Details (start date - stop date) Never Smoker NA - NA Tobacco Use/Smoking Question Answer Notes Patient is a nonsmoker Vital Signs Blood pressure systolic 104 mm Hg 01/29/20 25 Blood pressure diastolic 76 mm Hg 025 Height 56 in 01/28/2025 Weight 126.2 lbs 01/28/2025 BMI 28.29 kg/m2 01/28/2025 Encounters Encounter Location Date Provider Diagnosis [facility] [address] [place] [address] 01/28/2025 Stephanie Jimenez Bipolar 1 disorder, mixed F31.60 and Overweight E66.3 Assessments Encounter Date Diagnosis (ICD Code) Assessment Notes Treatment Notes Treatment Clinical Notes Section Notes 01/28/2025 Bipolar 1 disorder, mixed (ICD-10 - F31.60) continue Vraylar mood ok consider counseling ok for FMLA paperwork for mental health 01/28/2025 Overweight (ICD-10 - E66.3) work on diet , exercise Plan Of Treatment Medication Medication Name Sig Start Date Stop Date Notes Adipex-P 37.5 MG 1 tablet before norris kfast Orally Once a day for 30 days 01/28/2025 traZODone HCl 50 MG 1/2 tablet at bedtim e as needed Orally Once a day 11/23/2023 Vraylar 1.5 MG 1 capsule Orally Onc e a day for 90 days 12/29/2023 Treatment Notes Assessment Notes Bipolar 1 disorder, mixed continue Vraylar mood ok consider counseling ok for FMLA paperwork for mental health Overweight work on diet , exerc ise Next Appt Details Follow Up: prn, Reason: Progress Notes * REDDYLukaszJORGERENZO Liv RDOB:[birth year] (34 yo F)Acc No.[id number]:01/28/2025 Progress Note Patient: Liv SOSA R Provider: Tisha Jimenez ([facility]), SAP PORTAL ARCHITECT :1990 A ge:34 Y S ex:Female Date:01/28/2025 Address:[address] [place] [address], [id number] Check In:03:05 PM ESTCheck O ut:03:19 PM EST Subjective: * Chief Complaints: * 1 . FMLA paperwork renewal. 2. Has been off of Adipex for about 3 weeks- wants to know if can still get it? Not currently taking. * ROS: G eneral/Constitutional: Patient complaining of h irish time losing wt. F ever?denies. H eadache d enies. W eight loss [...] * Active Problem List R00.0 Tachycardia Modified On:06/13/2023 Status:confirmed F43.10 PTSD (post-traumatic stress disorder) Modified On:06/13/2023U Status:confirmed R42 Vertigo Modified On:06/13/2023U Status:confirmed F31.60 Bipolar 1 disorder, mixed Modified On:09/28/2023 Status:confirmed E16.1 Hyperinsulinemia Modified On:06/13/2023U Status:confirmed D24.2 [...] a n onsmoker * Medications: T aking traZODone HCl 50 MG Tablet 1 tablet at bedtime as needed Orally Once a day , Taking Vraylar(Cariprazine HCl) 1.5 MG Capsule 1 capsule Orally Once a day , Discontinued Adipex-P(Phentermine HCl) 37.5 MG Tablet 1 tablet before breakfast Orally Once a day , Medication List reviewed and reconciled with the patient * Allergies: N .K.D.A. Objective: * Vitals: W t:126.2lbs, Ht: 56 in, BP:104/76mm Hg, BMI:28.29Index, Ht-cm: 142.24 cm, Wt-k.24 kg. * Examination: G eneral Examinations: GENERAL APPEARANCE: a lert and oriented, i n no acute distress. NOSE: n ormal external appearance. LUNGS: c lear to auscultation bilaterally. CARDIO: r egular rate and rhythm, S1, S2 normal. ABDOMEN: s oft, nontender. MUSCULOSKELETAL: G ait and station normal. SKIN: w arm and dry. Assessment: * Assessment: 1. B ipolar 1 disorder, mixed - F31.60 (Primary) 2 . O verweight - E66.3? Plan: * Treatment: 2. O verweight Refill Adipex-P Tablet, 37.5 MG, 1 tablet before breakfast, Orally, Once a day, 30 days, 30 Tablet, Refills 0. Notes: work on diet , exercise * Preventive Medicine: Screenings/Counseling: B DC ACTION PLAN Above Normal BMI Follow-up D ietary management education, guidance, and counseling * Follow Up: p rn * * Electronically signed by Albertina Jimenez , TRUCK DOCK MATERIAL MOVER, FULL STACK WEB DEVELOPER.SAP PORTAL ARCHITECT.[id number] on 01/30/2025 at 09:03 AM EDT Sign off status: Completed Visit Status: C HK (Check Out) true * Provider: Tisha Jimenez ([facility]) SAP PORTAL ARCHITECT Date: 01/28/2025 Generated for Printi ng/Faxing/eTransmitting on: 04/17/2025 06:02 AM EDT History and Physical Notes * Examination Category Sub-Category Detail Notes Category Not es General Examinations GENERAL APPEARANCE: alert a nd oriented, in no acute distress EYES: EARS: NOSE: normal external appe arance THROAT: CARDIO: regular rate and rhy thm, S1, S2 normal LUNGS: clear to auscultatio n bilaterally ABDOMEN: soft, nontender SKIN: warm and dry BACK: MUSCULOSKELETAL: Gait and station nor mal LYMPH NODES:
[2025-04-17 05:56] VITALS: BP 128/99; PULSE 75; TEMP 36.7; O2SAT 98; BMI 29.6
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
--- OUTSIDE RECORDS SUMMARY | 2025-04-17 06:02 | XMS_ITS | Clinical Summary ---
Author Organization [facility] Address [id number] [address] [place] [address] Care Team Providers Care Shoe Caser Name Role Phone Stephanie Jimenez Lukasz LOVE-DIAMOND SAWER Primary Care Provider Allergies No known active allergies Medications divalproex (DEPAKOTE) 500 mg EC tablet Take 500 mg by mouth nightly. 2 Active fluticasone propionate (FLONASE) 50 mcg/actuation nasal spray Administer 1 spray into each nostril in the morning. 16 g 2 Active Additional Information Patient not taking.Reported on 09/26/2023 benzocaine-menth oL (CHLORASEPTIC SORE THROAT) 6-10 mg lozenge Dissolve 1 lozenge in the mouth every 2 (two) hours as needed for sore throat. 100 tablet 2 Active Additional Information Patient not taking.Reported on 09/26/2023 benzonatate (TESSALON PERLES) 100 mg capsule Take 1 capsule (100 mg total) by mouth every 8 (eight) hours. 30 capsule 2 Active Additional Information Patient not taking.Reported on 09/26/2023 ibuprofen (MOTRIN) 800 mg tablet Take 1 tablet (800 mg total) by mouth every 8 (eight) hours as needed for pain. 30 tablet 2 Active Additional Information Patient not taking.Reported on 09/26/2023 albuterol (PROVENTIL HFA;VENTOLIN HFA) 90 mcg/actuation inhalerIndicatio ns:Community acquired pneumonia of left lung, unspecified part of lung Inhale 2 puffs every 4 (four) hours as needed for wheezing. 18 g Active Active Problems Problem Noted Date Diagnosed Date Tonsillar hypertrophy 11/17/2021 Social History Tobacco Use Types Packs/Day Years Used Date Smoking Tobacco: Never Smokeless Tobacco: Never Tobacco Cessation:Counseling Given: Not Answered Alcohol Use Standard Drinks/Week Comments Not Currently 0 (1 standard drink = 0.6 oz pur e alcohol) Childcare Answer Date Recorded Childcare Unknown 02/27/2019 Employment Answer Date Recorded Employment Unknown 02/27/2019 Hunger Screening Answer Date Recorded Within the past 12 months we worried whether our food would run out before we got money to buy more. Never True 09/26/2023 Within the past 12 months th e food we bought just didn't last and we didn't have money to get more. Never True 09/26/2023 Comments No Sex and Gender Information Value Date Recorded Sex Assigned at Female 12/03/2023 11:29 PM EDT Legal Sex Female 11:38 AM EDT Gender Identity Female 12/03/2023 11:29 PM EDT Sexual Orientation Not on file Last Filed Vital Signs Vital Sign Reading Time Taken Comments Blood Pressure 119/76 09/26/2023 4:03 AM EST Pulse 115 09/26/2023 4:03 AM EST Temperature 37.2 C (99 F) 09/26/2023 1:12 AM EST Respiratory Rate 20 09/26/2023 4:03 AM EST Oxygen Saturation 97% 09/26/2023 4:03 AM EST Inhaled Oxygen Concentration - - Weight 58.1 kg (128 lb) 09/26/2023 1:12 AM EST Height 142.2 cm (4' 8 ) 09/26/2023 1:12 AM EST Body Mass Index 28.7 09/26/2023 1:12 AM EST Plan of Treatment Health Maintenance Due Date Last Done Comments Depression Screening 2000 DTaP,Tdap and Td Vaccines (1 - Tdap) 2007 Pap Smear 2009 COVID-19 Vaccine (3 - season) 2024, 07/11/2021 Adult BMI Screening 09/26/2024 09/26/2023 Tobacco Screening 09/26/2024 09/26/2023 Influenza Vaccine 05/19/2025 Medical Devices Not on file Insurance [employer] Care Teams Shoe Caser Relationship Specialty Start Date End Date Stephanie Jimenez, AXLE INSPECTOR-DIAMOND SAWER [address] [facility], [place] [id number] PCP - General Family Medicine 02/28/21
--- OUTSIDE RECORDS SUMMARY | 2025-04-17 06:02 | XMS_ITS | CCD ---
Author Organization [facility] CliniSyny Care Team Providers Care Roto Gravure Press Operator Name Role Phone DO Vishnu Santana Attending Provider REYNA Catalan Radha Primary Care Provider ALAYNA, STEPHANIE Primary Care Unavailable ALAYNA, STEPHANIE [...] Unavailable ALAYNA, STEPHANIE S Primary Care Unavailable Teresa, Stephanie Unavailable PRASHANTH Catalan-Jenny Brown Radha Primary Care Provider 1( [phone] Shauna Issa Attending Provider Alayna, Stephanie Radha Primary Care Unavailable Maegan, Shauna Admitting Unavailable Maegan, Shauna Attending Unavailable Alayna, Stephanie Radha Primary Care Unavailable Maegan, Shauna Admitting Unavailable Maegan, Shauna Attending Unavailable PRASHANTH Catalan-Jenny Stephanie Radha Primary Care Provider Shauna Issa Attending Provider Unavailable Primary Care Provider Unavailabl e MAEGAN, SHAUNA Attending Unavailable MAEGAN, SHAUNA Attending Unavailable ALLAN CODY Attending Unavailable WYATT CABALLERO Attending Unavailable PETRA GARCIA Attending Unavailable ALAYNA, STEPHANIE Referring Unavailable Alayna FUNERAL ASSISTANT-C, Stephanie Radha Primary Care Provider Danica iKrk APRN Attending Provider Medications Current Medications Medication Drug Class(es) Dates Sig (Normalized) Sig (Original) [id number] 60 actuat albuterol 0.09 mg/actuat metered dose [...] FOR COUGH Oral for 8 Days Active diclofenac sodium 75 mg delayed release oral tablet (3 sources) Nonsteroidal Anti-inflammatory Drug Start: 05-19-2023 take 1 tablet by mouth twice daily as needed diclofenac (Voltaren) 75 MG EC tablet 1 tablet Orally Twice a day as needed for 30 days 05/19/2023 Active ibuprofen 800 mg oral tablet (3 sources) Nonsteroidal Anti-inflammatory Drug Start: 11-29-2023 ibuprofen 800 MG tablet 11/29/2023 Active lamoTRIgine (1 source) Mood Stabilizer, Anti-epileptic Agent LaMICtal Active [place] (No Known Home Meds) (1 source) Start: 04-16-2025 [place] (No Known Home Meds) Active April 16, 2025 12:00am predniSONE 20 mg oral tablet (2 sources) Start: 10-04-2023 take 2 tablets by mouth every twenty-four hours predniSONE 20 MG 2 tablets Orally Once a day for 5 Sep, Active predniSONE 10 MG Oral for 5 Days Active divalproex sodium 500 mg delayed release oral tablet (3 sources) Mood Stabilizer, Anti-epileptic Agent take 1 tablet by mouth once divalproex (Depakote) 500 MG EC tablet Take 500 mg by mouth 1 time. Active Completed/Discontinued Medications Medication Drug Class(es) Dates Sig (Normalized) Sig (Original) acetaminophen 325 mg / HYDROcodone bitartrate 5 mg oral tablet (3 sources) Opioid Agonist Start: 11-29-2023 End: 07-17-2024 take 1 tablet by mouth every four hours HYDROcodone-acetam inophen ([place]) 5-325 MG tablet TAKE 1 TABLET BY MOUTH EVERY 4 HOURS. 11/29/2023 07/17/2024 Discontinued (Therapy completed) ethinyl estradiol 0.035 mg / norgestimate 0.25 mg oral tablet (4 sources) Progestin, Estrogen Start: 09-06-2023 End: 07-17-2024 norgestimate-ethin yl estradiol (Estarylla) 0.25-35 MG-MCG tablet Indications: Unwanted fertility Take 1 tablet by mouth in the morning. 90 tablet 09/06/2023 07/17/2024 Discontinued (Therapy completed) take 1 tablet by mouth in the mo rning Estarylla 0.25-35 MG-MCG TAKE 1 TABLET BY MOUTH IN THE MORNING Oral for 84 Days Active hydrocortisone 10 mg/ml / neomycin 3.5 mg/ml / polymyxin b 52135 unt/ml otic solution (1 source) Aminoglycoside Antibacterial, Polymyxin-class Antibacterial, Corticosteroid Start: 02-22-2021 Pxjotuan-Ktlpqvvgn-OG 3.5-44502-2 4 drops into affected ear Otic Three times a day for 7 day(s) Feb, Not-Taking/PRN Levonorgestrel (1 source) Progestin, Progestin-containin g Intrauterine Device Mirena Not-Taking/WA N oseltamivir 75 mg oral capsule (1 source) Neuraminidase Inhibitor Start: 09-04-2018 take 1 capsule by mouth every twelve hours Tamiflu 75 MG 1 capsule Orally Twice a day for 5 day(s) Aug, Not-Taking/PRN phentermine hydrochloride 37.5 mg oral tablet (3 sources) Sympathomimetic Amine Anorectic Start: 04-09-2024 End: 04-16-2025 take 1 tablet by mouth once daily Phentermine 37.5 mg tablet Discontinued 37.5 MG PO Daily April 09, 2024 12:00am April 16, 2025 3:40pm take 1 tablet by carson once daily before breakfast Phentermine HCl 37.5 MG TAKE 1 TABLET BY MOUTH EVERY DAY BEFORE BREAKFAST Oral for 30 Days Active traZODone hydrochloride 50 mg oral tablet (3 sources) Serotonin Reuptake Inhibitor Start: 11-23-2023 End: 07-17-2024 traZODone (Desyrel) 50 MG tablet 1 (one) time each day at the same time 11/23/2023 07/17/2024 Discontinued (Therapy completed) Problems Problem Classification Problem Date Documented Da te Episodic/Chronic Acute and chronic tonsillitis (5 sources) Amygdalolith; Translations: [Other chronic diseases of tonsils and adenoids] 04-09-2024 Chronic Acute bronchitis (1 source) Acute bronchitis, unspecified [...] Translations: [Pneumonia, unspecified organism] Onset: 09-26-2023 Episodic Poisoning by nonmedicinal substances (1 source) Bee sting; Translations: [Toxic effect of venom of bees, accidental (unintentional), initial encounter] 04-16-2025 Episodic Unclassified (1 source) COUGH, CONGESTION, VOMITING Onset: 09-26-2023 Results Test Name Value Interpretation Reference Range Facility No Panel InformationOrdered By: Danica Kirk on 04-09-2024 Quick Strep (POC) [facility] Eddie 11-29-2023 L Specimen: [id number] Received: 11/30/23 Status: BRANDON Meeks Num: [id number] Spec Type: Surgical Subm Dr: Shauna Issa Tissues: A Fallopian Tube - Sterilization (BILATERAL FT) Procedures: HE/2, Gross/Micro L2 Age/ Patient Sex Location Account Attending Physician Liv Fortune 33/F LABELL [id number] Shauna Issa SPEC NUM: [id number] RECD: 11/30/23 STATUS: BRANDON MEEKS NUM: [id number] LUDWIG: 11/29/23- SUBM DR: Shauna Issa ENTERED: 11/30/23-[address] [facility] [address]: Mod[place],Lab SPEC TYPE: Surgical DEPT: MARICRUZ OLIVA ORDERED: HE/2, Gross/Micro L2 ORDERED: HE/2, Gross/Micro L2 Pathological Diagnosis Bilateral fallopian tubes, bilateral salpingectomy: -Bilateral fimbriated fallopian tubes without any significant histopathological changes, except 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 Each tube has attached paratubal cysts measuring up to 1.0 cm. Sectioning each reveals an unremarkable patent lumen. Metal Fabricator Helper sections are submitted in two cassettes labeled A1-A2. CPT Codes 09882 ---- ---- Specimen: [id number] Received: 11/30/23 Status: BRANDON Meeks Num: [id number] Spec Type: Surgical Subm Dr: Shauna Issa Tissues: A Fallopian Tube - Sterilization (BILATERAL FT) Procedures: ELVIS Gross/Asia L2 ---- Patient: Liv Fortune [id number] (Continued) ---- Signed (signature on file) Madeline Vizcarra MD 12/01/23 1612 [facility] Eddie 11-06-2023 L Specimen: [id number] Received: 11/07/23 Status: BRANDON Meeks Num: [id number] Spec Type: Surgical Subm Dr: Shauna Issa Tissues: A Endometrium - Biopsy (EMB) Procedures: ELVIS Gross/Asia L4 Age/ Patient Sex Location Account Attending Physician Liv Fortune 33/F LABELL [id number] Shauna Issa SPEC NUM: [id number] RECD: 11/07/23 STATUS: BRANDON MEEKS NUM: [id number] LUDWIG: 11/06/23- SUBM DR: Shauna Issa ENTERED: 11/07/[address] [facility] [address]: Jaime Byers SPEC TYPE: Surgical DEPT: MARICRUZ OLIVA ORDERED: [...] in one cassette labeled A1. CPT Codes 01364 ---- ---- Specimen: [id number] Received: 11/07/23 Status: BRANDON Meeks Num: [id number] Spec Type: Surgical Subm Dr: Shauna Issa Tissues: A Endometrium - Biopsy (EMB) Procedures: HE/2, Gross/Micro L4 ---- Patient: CortneycindasouleymanealbertoLiv [id number] (Continued) ---- Signed (signature on file) Abeba Guzman MD 11/12/23 2142 [facility] CBC AND AUTO DIFFon 09-26-19 24 ABSOLUTE BASOPHIL 0.1 X10E9/L Normal 0.0-0.2 [facility] Comment on above: Performed By: #### 4 8066-5, CBCA #### [facility] ([id number]) [address] [place] [address] 58040 ABSOLUTE NEUTROPHIL 10.2 X10E9/L High 1.5-6.6 [facility] Comment on above: Performed By: #### 4 8066-5, CBCA #### [facility] ([id number]) [address] [place] [address] 16677 Basophils/100 WBC (Bld) 0.5 % Normal [facility] Comment on above: Performed By: #### 4 8066-5, CBCA #### [facility] ([id number]) [address] [place] [address] 41908 Eosinophils (Bld) [#/Vol] 0.2 10*3/uL Normal 0.0-0.4 [facility] Comment on above: Performed By: #### 4 8066-5, CBCA #### [facility] ([id number]) [address] [place] [address] 67446 Eosinophils/100 WBC (Bld) 1.3 % Normal [facility] Comment on above: Performed By: #### 4 8066-5, CBCA #### [facility] ([id number]) [address] [place] [address] 26577 Erythrocyte distribution width (RBC) [Ratio] 12.0 % Normal 11.5-15.0 [facility] Comment on above: Performed By: #### 4 8066-5, CBCA #### [facility] ([id number]) [address] [place] [address] 60915 Hematocrit (Bld) [Volume fraction] 40.6 % Normal 35-47 [facility] Comment on above: Performed By: #### 4 8066-5, CBCA #### [facility] ([id number]) [address] [place] [address] 05881 Hemoglobin (Bld) [Mass/Vol] 14.0 g/dL Normal 11.7-15.5 [facility] Comment on above: Performed By: #### 4 8066-5, CBCA #### [facility] ([id number]) [address] [place] [address] 60055 Lymphocytes (Bld) [#/Vol] 2.1 10*3/uL Normal 1.0-3.5 [facility] Comment on above: Performed By: #### 4 8066-5, CBCA #### [facility] ([id number]) [address] [place] [address] 88204 Lymphocytes/100 WBC (Bld) 15.1 % Normal [facility] Comment on above: Performed By: #### 4 8066-5, CBCA #### [facility] ([id number]) [address] [place] [address] 23422 MCH (RBC) [Entitic mass] 31.4 pg Normal 27-34 [facility] Comment on above: Performed By: #### 4 8066-5, CBCA #### [facility] ([id number]) [address] [place] [address] 24813 MCHC (RBC) [Mass/Vol] 34.4 g/dL Normal 32-36 [facility] Comment on above: Performed By: #### 4 8066-5, CBCA #### [facility] ([id number]) [address] [place] [address] 76323 MCV (RBC) [Entitic vol] 91 fL Normal 80-100 [facility] Comment on above: Performed By: #### 4 8066-5, CBCA #### [facility] ([id number]) [address] [place] [address] 08732 Monocytes (Bld) [#/Vol] 1.2 10*3/uL High 0-0.9 [facility] Comment on above: Performed By: #### 4 8066-5, CBCA #### [facility] ([id number]) [address] [place] [address] 49354 Monocytes/100 WBC (Bld) 8.6 % Normal [facility] Comment on above: Performed By: #### 4 8066-5, CBCA #### [facility] ([id number]) [address] [place] [address] 30123 Neutrophils/100 WBC (Bld) 74.5 % Normal [facility] Comment on above: Performed By: #### 4 8066-5, CBCA #### [facility] ([id number]) [address] [place] [address] 66792 Platelet mean volume (Bld) [Entitic vol] 8.3 fL Normal 7-12 [facility] Comment on above: Performed By: #### 4 8066-5, CBCA #### [facility] ([id number]) [address] [place] [address] 76166 Platelets (Bld) [#/Vol] 301 10*3/uL Normal 150-450 [facility] Comment on above: Performed By: #### 4 8066-5, CBCA #### [facility] ([id number]) [address] [place] [address] 72007 RBC COUNT 4.45 X10E12/L Normal 3.80-5.20 [facility] Comment on above: Performed By: #### 4 8066-5, CBCA #### [facility] ([id number]) [address] [place] [address] 28130 WBC (Bld) [#/Vol] 13.7 10*3/uL High 4.0-11.0 [facility] Comment on above: Performed By: #### 4 8066-5, CBCA #### [facility] ([id number]) [address] [place] [address] 11342 COMPREHENSIVE METABOLIC PANE Eddie 09-26-2023 Albumin [Mass/Vol] 3.7 g/dL Normal 3.2-5.3 [facility] Comment on above: Performed By: #### Jenny FORTUNE, 3040-3 #### [facility] ([id number]) [address] [place] [address] 74346 ALP [Catalytic activity/Vol] 77 U/L Normal 39-130 [facility] Comment on above: Performed By: #### Jenny FORTUNE, 3040-3 #### [facility] ([id number]) [address] [place] [address] 14445 ALT [Catalytic activity/Vol] 21 U/L Normal 0-31 [facility] Comment on above: Performed By: #### Jenny FORTUNE, 3040-3 #### [facility] ([id number]) [address] [place] [address] 17845 Anion gap [Moles/Vol] 12 mmol/L Normal 5-15 [facility] Comment on above: Performed By: #### Jenny FORTUNE, 3040-3 #### [facility] ([id number]) [address] [place] [address] 30336 AST [Catalytic activity/Vol] 22 U/L Normal 0-41 [facility] Comment on above: Performed By: #### C DEVIKA, 3039-3 #### [facility] ([id number]) [address] [place] [address] 86913 Bilirubin [Mass/Vol] 0.5 mg/dL Normal 0.3-1.2 [facility] Comment on above: Performed By: #### Jenny FORTUNE, 3 #### [facility] ([id number]) [address] [place] [address] 07578 Calcium [Mass/Vol] 8.8 mg/dL Normal 8.5-10.5 [facility] Comment on above: Performed By: #### Jenny FORTUNE, 3039-11 #### [facility] ([id number]) [address] [place] [address] 46326 Chloride [Moles/Vol] 98 mmol/L Normal 98-109 [facility] Comment on above: Performed By: #### Jenny FORTUNE, 3039-11 #### [facility] ([id number]) [address] [place] [address] 14485 CO2 [Moles/Vol] 24 mmol/L Normal 22-32 [facility] Comment on above: Performed By: #### Jenny FORTUNE, 3 #### [facility] ([id number]) [address] [place] [address] 93860 Creatinine [Mass/Vol] 0.61 mg/dL Normal 0.40-1.00 [facility] Comment on above: Result Comment: METH OD TRACEABLE TO IDMS STANDARD Performed By: #### Jenny FORTUNE, 3 #### [facility] ([id number]) [address] [place] [address] 71476 eGFR (CKD-EPI) NON-RACE DEPENDENT >90 Normal >59 [facility] Comment on above: Result Comment: Reported eGFR is based on the CKD-EPI 2020 equation that does not use a race coefficient. Performed By: #### Jenny FORTUNE, 3040-3 #### [facility] ([id number]) [address] [place] [address] 66865 Glucose [Mass/Vol] 103 mg/dL High 65-99 [facility] Comment on above: Performed By: #### Jenny FORTUNE, 3040-3 #### [facility] ([id number]) [address] [place] [address] 55971 Potassium [Moles/Vol] 3.4 mmol/L Low 3.5-5.0 [facility] Comment on above: Performed By: #### Jenny FORTUNE, 3039-3 #### [facility] ([id number]) [address] [place] [address] 20204 Protein [Mass/Vol] 7.2 g/dL Normal 6.0-8.0 [facility] Comment on above: Performed By: #### Jenny FORTUNE, 0-3 #### [facility] ([id number]) [address] [place] [address] 39793 Sodium [Moles/Vol] 134 mmol/L Normal 134-146 [facility] Comment on above: Performed By: #### Jenny FORTUNE, 3040-3 #### [facility] ([id number]) [address] [place] [address] 78140 Urea nitrogen [Mass/Vol] 10 mg/dL Normal 5-23 [facility] Comment on above: Performed By: #### Jenny FORTUNE, 3040-3 #### [facility] ([id number]) [address] [place] [address] 04774 Fibrin D-dimer DDU (PPP) [Ma ss/Vol]on 09-26-2023 D DIMER 194 ng/mL DDU Normal <255 [facility] Comment on above: Result Comment: Results <255 ng/mL DDU: The presence of a VTE can safely be excluded with a negative D-Dimer result and Wells score. A negative result doesn't exclude the possibility of DIC. The test be repeated along with other diagnostic tests if the patient's symptoms persist or worsen. [email or web address] Performed By: #### 4 8066-5, CBCA #### [facility] ([id number]) [address] [place] [address] LIPASEon 09-26-2023 Lipase [Catalytic activity/Vol] 32 U/L Normal 17-40 [facility] Comment on above: Performed By: #### C MP, 3040-3 #### [facility] ([id number]) [address] [place] [address] 11040 SARS/FLU A+B/RSV by NAAT/Mol ecularon 09-26-2023 SARS/FLU [...] operators who are performing tests using either mapp2link DX or Delivered systems and is limited to laboratories that [...] specimen repeat. Fact Sheet for Healthcare Providers: https://www.fda.gov/nm parviz/676185/download Fact Sheet for Patients: https://www.fda.gov/nm parviz/586828/download Normal [facility] Comment on above: Performed By: #### C OVFLR #### [facility] ([id number]) [address] [place] [address], [place] [address] XR CHEST 2 VWSon 09-26-2023 XR CHEST [...] Robbi Owen DO on 09/26/2023 2:12 AM Tunde Null MD have personally reviewed the image(s) and agree with and/or edited the report Finalized by Tunde Lakhani MD on 09/26/2023 2:23 AM Normal [facility] CBC AUTO DIFFon 02-02-2022 BASO # 0.1 103/ul Normal 0.0-0.1 [facility] Comment on above: Performed By: #### C BC #### [facility] [address] [address] [address] Keke Vizcarra Basophils/100 WBC (Bld) 0.4 % Normal 0.2-2.0 [facility] Comment on above: Performed By: #### C BC #### [facility] [address] [place] [address] Dr. Keke Vizcarra EO # 0.1 103/ul Normal 0.0-0.7 [facility] Comment on above: Performed By: #### C BC #### [facility] [address] [place] [address] Dr. Keke Vizcarra Eosinophils/100 WBC (Bld) 0.9 % Normal 0.9-7.0 [facility] Comment on above: Performed By: #### C BC #### [facility] [address] [place] [address] Dr. Keke Vizcarra Erythrocyte distribution width (RBC) [Ratio] 11.6 % Normal 11.0-15.0 [facility] Comment on above: Performed By: #### C BC #### [facility] [address] [place] [address] Dr. Keke Vizcarra Hematocrit (Bld) [Volume fraction] 45.1 % Normal 36.0-48.0 [facility] Comment on above: Performed By: #### C BC #### [facility] [address] [place] [address] Dr. Keke Vizcarra Hemoglobin (Bld) [Mass/Vol] 15.2 g/dL Normal 12.0-16.0 [facility] Comment on above: Performed By: #### C BC #### [facility] [address] [place] [address] Dr. Keke Vizcarra IG # 0.04 10e3/ul Critically high 0.00-0.03 [facility] Comment on above: Performed By: #### C BC #### [facility] [address] [place] [address] Dr. Keke Vizcarra IG % 0.3 % Normal 0.0-0.5 [facility] Comment on above: Performed By: #### C BC #### [facility] [address] [place] [address] Dr. Keke Vizcarra LYMPH # 2.2 103/ul Normal 1.2-3.8 [facility] Comment on above: Performed By: #### C BC #### [facility] [address] [place] [address] Dr. Keke Vizcarra Lymphocytes/100 WBC (Bld) 16.4 % Critically low 20.5-60.0 [facility] Comment on above: Performed By: #### C BC #### [facility] [address] [place] [address] Dr. Keke Vizcarra MANUAL DIFF REQ NO Normal [facility] Comment on above: Performed By: #### C BC #### [facility] [address] [place] [address] Dr. Keke Vizcarra MCH (RBC) [Entitic mass] 31.5 pg Normal 26.7-34.0 [facility] Comment on above: Performed By: #### C BC #### [facility] [address] [place] [address] Dr. Keke Vizcarra MCHC (RBC) [Mass/Vol] 33.7 g/dL Normal 29.9-35.2 [facility] Comment on above: Performed By: #### C BC #### [facility] [address] [place] [address] Dr. Keke Vizcarra MCV (RBC) [Entitic vol] 93.6 fL Normal 81.0-99.0 [facility] Comment on above: Performed By: #### C BC #### [facility] [address] [place] [address] Dr. Keke Vizcarra MONO # 0.7 103/ul Normal 0.3-0.8 [facility] Comment on above: Performed By: #### C BC #### [facility] [address] [place] [address] Dr. Keke Vizcarra Monocytes/100 WBC (Bld) 5.0 % Normal 1.7-12.0 [facility] Comment on above: Performed By: #### C BC #### [facility] [address] [place] [address] Dr. Keke Vizcarra NEUT # 10.4 103/ul Critically high 1.4-6.5 [facility] Comment on above: Performed By: #### C BC #### [facility] [address] [place] [address] Dr. Keke Vizcarra Neutrophils/100 WBC (Bld) 77.0 % Critically high 43.0-75.0 [facility] Comment on above: Performed By: #### C BC #### [facility] [address] [place] [address] Dr. Keke Vizcarra Platelet mean volume (Bld) [Entitic vol] 10.0 fL Normal 9.5-13.5 [facility] Comment on above: Performed By: #### C BC #### [facility] [address] [place] [address] Dr. Keke Vizcarra PLT 433 103/ul Normal 150-450 [facility] Comment on above: Performed By: #### C BC #### [facility] [address] [place] [address] Dr. Keke Vizcarra RBC 4.82 106/ul Normal 4.20-5.40 [facility] Comment on above: Performed By: #### C BC #### [facility] [address] [place] [address] Dr. Keke Vizcarra WBC 13.5 103/ul Critically high 4.0-11.[address] [facility] Comment on above: Performed By: #### C BC #### [facility] [address] [place] [address] Dr. Keke Vizcarra DEPAKENE/VALPROICon 02-03-20 DEPAKENE <3.0 Critically low 50.0-100.0 [facility] Comment on above: Performed By: #### C MP, VALP #### [facility] [address] [place] [address] Dr. Keke Vizcarra GLYCOHEMOGLOBIN A1Con 2021 ADA RECOMMENDATION SEE BELOW Normal [facility] Comment on above: Result Comment: ADA RECOMMENDED LIMIT 4.0 - 6.0 ADA THERAPEUTIC TARGET < 7.0 ACTION SUGGESTED > 7.0 Performed By: #### A 1C #### [facility] [address] [place] [address] Dr. Keke Vizcarra Glucose [Mass/Vol] 103 mg/dL Normal [facility] Comment on above: Performed By: #### A 1C #### [facility] [address] [place] [address] Dr. Keke Vizcarra HbA1c (Bld) [Mass fraction] 5.2 % Normal 4.5-6.2 [facility] Comment on above: Performed By: #### A 1C #### [facility] [address] [place] [address] Dr. Keke Vizcarra PROF 14(COMP METB)on 022 Albumin [Mass/Vol] 4.1 g/dL Normal 3.4-5.0 [facility] Comment on above: Performed By: #### C MP, VALP #### [facility] [address] [place] [address] Dr. Keke Vizcarra Albumin/Globulin [Mass ratio] 1.1 {ratio} Normal [facility] Comment on above: Performed By: #### C MP, VALP #### [facility] [address] [place] [address] Dr. Keke Vizcarra ALP [Catalytic activity/Vol] 88 U/L Normal 46-116 [facility] Comment on above: Performed By: #### C MP, VALP #### [facility] [address] [place] [address] Dr. Keke Vizcarra ALT [Catalytic activity/Vol] 30 U/L Normal 14-59 [facility] Comment on above: Performed By: #### C MP, VALP #### [facility] [address] [place] [address] Dr. Keke Vizcarra Anion gap [Moles/Vol] 15.0 mmol/L Normal [facility] Comment on above: Performed By: #### C MP, VALP #### [facility] [address] [place] [address] Dr. Keke Vizcarra AST [Catalytic activity/Vol] 19 U/L Normal 15-37 [facility] Comment on above: Performed By: #### C MP, VALP #### [facility] [address] [address] [address] Keke Vizcarra Bilirubin [Mass/Vol] 1.1 mg/dL Critically high 0.2-1.0 [facility] Comment on above: Performed By: #### C MP, VALP #### [facility] [address] [place] [address] Dr. Keke Vizcarra Calcium [Mass/Vol] 9.1 mg/dL Normal 8.5-10.1 [facility] Comment on above: Performed By: #### C MP, VALP #### [facility] [address] [place] [address] Dr. Keke Vizcarra Chloride [Moles/Vol] 104 mmol/L Normal 98-107 [facility] Comment on above: Performed By: #### C MP, VALP #### [facility] [address] [place] [address] Dr. Keke Vizcarra CO2 [Moles/Vol] 26.0 mmol/L Normal 21.0-32.[address] [facility] Comment on above: Performed By: #### C MP, VALP #### [facility] [address] [place] [address] Dr. Keke Vizcarra Creatinine [Mass/Vol] 0.62 mg/dL Normal 0.55-1.02 [facility] Comment on above: Performed By: #### C MP, VALP #### [facility] [address] [place] [address] Dr. Keke Vizcarra EGFR-AF GUINEAN >60 Normal >=60 [facility] Comment on above: Performed By: #### C MP, VALP #### [facility] [address] [place] [address] Dr. Keke Vizcarra EGFR-NON AF GUINEAN >60 Normal >=60 [facility] Comment on above: Performed By: #### C MP, VALP #### [facility] [address] [place] [address] Dr. Keke Vizcarra Globulin (S) [Mass/Vol] 3.8 g/dL Normal [facility] Comment on above: Performed By: #### C MP, VALP #### [facility] [address] [address] [address] Keke Vizcarra Glucose [Mass/Vol] 95 mg/dL Normal 74-106 [facility] Comment on above: Performed By: #### C MP, VALP #### [facility] [address] [address] [address] Keke Vizcarra Potassium [Moles/Vol] 4.0 mmol/L Normal 3.5-5.1 [facility] Comment on above: Performed By: #### C MP, VALP #### [facility] [address] [place] [address] Dr. Keke Vizcarra Protein [Mass/Vol] 7.9 g/dL Normal 6.4-8.2 [facility] Comment on above: Performed By: #### C MP, VALP #### [facility] [address] [place] [address] Dr. Keke Vizcarra Sodium [Moles/Vol] 141 mmol/L Normal 136-145 [facility] Comment on above: Performed By: #### C MP, VALP #### [facility] [address] [address] [address] Keke Vizcarra Urea nitrogen [Mass/Vol] 9.0 mg/dL Normal 7.0-18.0 [facility] Comment on above: Performed By: #### C MP, VALP #### [facility] [address] [place] [address] Dr. Keke Vizcarra Urea nitrogen/Creatinine [Mass ratio] 14.5 mg/mg Normal [facility] Comment on above: Performed By: #### C MP, VALP #### [facility] [address] [place] [address] Dr. Keke Vizcarra Diagnostic Mammogram, Bilate ral [...] VERY IMPORTANT TO YOUR HEALTH. THE CURRENT [place] GUIDELINES RECOMMENDS ANNUAL MAMMOGRAPHY BEGINNING AT AGE 40. THIS FACILITY USES A REMINDER SYSTEM TO ENSURE ALL PATIENTS RECEIVE REMINDER NOTIFICATIONS AT THE APPROPRIATE TIME BASED ON THE RECOMMENDATIONS OF THIS EXAM. Asymmetry: Visible on only one projection. Asymmetries that apple turner to be summation artifact are benign (BI-RADS 2). The BI-RADS [place] offers guidance regarding the other categories of [...] Bj Arnold on 01/26/[address] [facility] Interventional Technologist Q - CHLAMYDIA/N.GONORRHOEAE RNA,TMA,PAP VIALon 01-12-2022 CHLAMYDIA TRACHOMATIS RNA, TMA, UROGENITAL Not detected Normal NOT DETECTED [facility] Interventional Technologist Comment on above: Order Comment: [facility] performed at: [facility], [facility], [address] [place] [address], [address] [place] [address], [phone], Line Worker: Hill Kaba MD [facility] Collection Date/Time: [facility] Results Received Date/Time: [facility] Reported Date/Time: FASTING: UNKNOWN Result Comment: [QPT ] Performed By: #### 9 1414, 11204 #### [facility] [address] [place] [address] NEISSERIA GONORRHOEAE RNA, TMA, UROGENITAL Not detected Normal NOT DETECTED [facility] Interventional Technologist Comment on above: Order Comment: [facility] performed at: [facility], [employer] [facility], [address] [place] [address], [address] [place] [address], [phone], Line Worker: Hill Kaba MD [facility] Date/Time: [facility] Results Received Date/Time: [facility] Reported Date/Time: FASTING: UNKNOWN Result Comment: [QPT ] Performed By: #### 9 1414, 97124 #### [facility] [address] [place] [address] Q - THINPREP(R) TIS AND HPV MRNA E6/E7 RFL HPV 16/18/45on 01-12-2022 CLINICAL INFORMATION: None given Normal Nor [facility] Interventional Technologist Comment on above: Order Comment: [facility] performed at: [facility], [facility], [address] [facility] [place], [facility] [place], [address], Line Worker: Cesilia Ferrari Testing performed at: [facility], [facility], [address] [place] [address], [address] [place] [address] - [place], [address], Line Worker: Hill Kaba MD [facility] Collection Date/Time: [facility] Results Received Date/Time: [facility] Reported Date/Time: [id number] FASTING: UNKNOWN Result Comment: [HFK ] Performed By: #### 9 1414, 59683 #### [facility] [address] [place] [address] COMMENT SEE NOTE Normal [facility] Interventional Technologist Comment on above: Order Comment: [facility] performed at: [facility], [facility], [address], [place], [address], Line Worker: Cesilia Ferrari Testing performed at: [place], [facility], [address] [place] [address], [address] [place] [address] - [facility], [place], [address], Line Worker: Hill Kaba MD [facility] Collection Date/Time: [facility] [...] along with historic and current clinical information. [HFK] Performed By: #### 9 1414, 44866 #### [facility] [address] [place] [address] Order Comment: [facility] performed at: [facility], [employer] [facility], [address] [place] [address], [address] [place] [address], [phone], Line Worker: Hill Kaba MD [facility] Collection Date/Time: [facility] Results Received Date/Time: [facility] Reported Date/Time: FASTING: UNKNOWN Result Comment: The analytical performance characteristics of this assay, when used to test SurePath(TM) specimens have been determined by [employer]. The modifications have not been cleared or approved by the FDA. This assay has been validated pursuant to the CLIA regulations and is used for clinical purposes. For additional information, please refer to https://education.Mailgun/faq/ESX022 (This link is being provided for information/ educational purposes only.) NO COLLECTION DATE RECEIVED. WE HAVE USED THE DATE THE SPECIMEN WAS RECEIVED BY THIS LABORATORY THE COLLECTION DATE. IF THIS IS INCORRECT, PLEASE CONTACT CLIENT SERVICES. PHONE NUMBER: [phone] [QPT] COMMENT: SEE NOTE Normal [facility] Comment on above: Order Comment: [facility] performed at: [facility], [facility], [address], [address], [place], [address], Line Worker: Cesilia Ferrari Testing performed at: [facility], [facility], [address] [place] [address], [address] [place] [address], Line Worker: Hill Kaba MD [facility] Collection Date/Time: [facility] Results Received Date/Time: [facility] Reported Date/Time: FASTING: UNKNOWN Result Comment: This Pap test has been evaluated with computer assisted technology. Suggest clinical correlation and follow-up as clinically appropriate [HFK] Performed By: #### 9 1414, 51981 #### [facility] [address] [place] [address] ASSEMBLER SKYLIGHTS: SEE NOTE Normal [facility] Comment on above: Order Comment: [facility] performed at: [place], [address] [place] [address], [place], [address], Line Worker: Cesilia Ferrari Testing performed at: [facility], [employer], [address] [place] [address], [address] [place] [address], Line Worker: Hill Kaba MD [facility] Date/Time: [facility] Results Received Date/Time: [facility] Reported Date/Time: FASTING: UNKNOWN Result Comment: PCJ, ANNABEL(ASCP) CT screening location: [place] [address]. [HFK] Performed By: #### 9 1414, 11917 #### [facility] [address] [place] [address] GENERAL CATEGORIZATION: EPITHELIAL CELL ABNORMALITY Abnormal [facility] Comment on above: Order Comment: [facility] performed at: [facility], [facility], [facility], [facility], [address], Line Worker: Cesilia Ferrari Testing performed at: [facility], [facility], [address] [place] [address], [address] [place] [address], [address] [place] [address], Line Worker: Hill Kaba MD [facility] Collection Date/Time: [facility] Results Received Date/Time: [facility] Reported Date/Time: FASTING: UNKNOWN Result Comment: [HFK ] Performed By: #### 9 1414, 23611 #### [facility] [address] [place] [address] HPV mRNA E6/E7 Not detected Normal Not Detected Marilynn hensley [place] Interventional Technologist Comment on above: Order Comment: [facility] performed at: [facility], [facility], [address] [place] [address], [facility] [place], [address] [place] [address], Line Worker: Cesilia Ferrari Testing performed at: [place], [facility], [address] [place] [address], [address] [place] [address], [address] [place] [address], Line Worker: Hill Kaba MD [facility] Date/Time: [facility] Results Received Date/Time: [facility] Reported Date/Time: FASTING: UNKNOWN Result Comment: Meth odology: Survey Research Associate-Mediated Amplification This assay detects E6/E7 viral messenger RNA (mRNA) from 14 high-risk HPV types (16,18,31,33,35,39,45,51,52,56,58,59,66,68). The analytical performance characteristics of this assay have been determined by [employer]. The modifications have not been cleared or approved by the FDA. This assay has been validated pursuant to the CLIA regulations and is used for clinical purposes. For additional information, please refer to http://education.Medityplus.Octamer/faq/DXV094c8 (This link if provided for information/ educational purposes only.) [O6K] Performed By: #### 9 1414, 25676 #### [facility] Default [address] [place] [address] INTERPRETATION/RESULT: Atypical Squamous Cells of Undetermined Significance (ASC-US) Abnormal [facility] Specialist Comment on above: Order Comment: [facility] performed at: [facility], [facility], [address] [facility], [address], [place], [address], Line Worker: Cesilia Ferrari Testing performed at: [facility], [facility], [address] [place] [address], [address] [place] [address], [address] [place] [address], Line Worker: Hill Kaba MD [facility] Collection Date/Time: [facility] Results Received Date/Time: [facility] Reported Date/Time: FASTING: UNKNOWN Result Comment: [HFK ] Performed By: #### 9 1414, 83215 #### [facility] [address] [place] [address] LMP: NONE GIVEN Normal [facility] Specialist Comment on above: Order Comment: [facility] performed at: [facility], [facility], [address] [place] [address], [address], [place], [address], Line Worker: Cesilia Ferrari Testing performed at: [facility], [facility], [address] [place] [address], [address] [place] [address], [address] [place] [address], Line Worker: Hill Kaba MD [facility] Collection Date/Time: [facility] Results Received Date/Time: [facility] Reported Date/Time: FASTING: UNKNOWN Result Comment: [HFK ] Performed By: #### 9 1414, 22897 #### [facility] Default [address] [place] [address] PATHOLOGIST: SEE NOTE Normal [facility] Specialist Comment on above: Order Comment: [facility] performed at: [facility], [facility], [address] [facility], [address], [place], [address], Line Worker: Cesilia Ferrari Testing performed at: [facility], [facility], [address] [place] [address], [address] [place] [address], [address] [place] [address], Line Worker: Hill Kaba MD [facility] Collection Date/Time: [facility] Results Received Date/Time: [facility] Reported Date/Time: FASTING: UNKNOWN Result Comment: Adrian [place] MD Board Certified in Anatomic Pathology and Cytopathology (electronic signature) For questions regarding this report call Anatomic Pathology at [phone] Mikey [place] MD, Waitstaff Captain [employer] [place], [place] [HFK] Performed By: #### 9 1414, 00616 #### [facility] Default [address] [place] [address] PREV. BX: NONE GIVEN Normal [facility] Comment on above: Order Comment: [facility] performed at: [facility], [facility], [address] [place] [address], [phone], Line Worker: Cesilia Ferrari Testing performed at: [facility], [employer], [address] [place] [address], [address] [place] [address], Line Worker: Hill Kaba MD [facility] Collection Date/Time: [facility] Results Received Date/Time: [facility] Reported Date/Time: FASTING: UNKNOWN Result Comment: [HFK ] Performed By: #### 9 1414, 01594 #### [facility] Default [address] [place] [address] PREV. PAP: NONE GIVEN Normal [facility] Specialist Comment on above: Order Comment: [facility] performed at: [facility], [facility], [address] [facility] [place] [facility], [facility], [address], Line Worker: Cesilia Ferrari Testing performed at: [employer], [employer], [address] [place] [address], [address] [place] [address], Line Worker: Hill Kaba MD [facility] Collection Date/Time: [facility] Results Received Date/Time: [facility] Reported Date/Time: FASTING: UNKNOWN Result Comment: [HFK ] Performed By: #### 9 1414, 49919 #### [facility] Default [address] [place] [address] SOURCE: None given Normal [place] Interventional Technologist Comment on above: Order Comment: [facility] performed at: [facility], [facility], [address], [address], [place], [address], Line Worker: Cesilia Ferrari Testing performed at: [place], [facility], [address] [place] [address], [address] [place] [address], [address] [place] [address], Line Worker: Hill Kaba MD [facility] Collection Date/Time: [facility] Results Received Date/Time: [facility] Reported Date/Time: FASTING: UNKNOWN Result Comment: [HFK ] Performed By: #### 9 1414, 58966 #### [facility] Default [address] [place] [address] STATEMENT OF ADEQUACY: SEE NOTE [facility] Comment on above: Order Comment: [facility] performed at: [facility], [facility], [address], [address], [place], [place], [address] [place] [address], Line Worker: Cesilia Ferrari Testing performed at: [facility], [facility], [address] [place] [address], [address] [place] [address], [address] [place] [address], Line Worker: Hill Kaba MD [facility] Collection Date/Time: [facility] Results Received Date/Time: [facility] Reported Date/Time: FASTING: UNKNOWN Result Comment: Sati sfactory for evaluation. Endocervical/transformation zone component present. [HFK] Performed By: #### 9 1414, 75882 #### [facility] Default [address] [place] [address] Vital Signs Date Time Vital Sign Value Performing Clinician Facility 04-16-2025 15:40-0400 Body height 142.24 cm Stephanie Catalan NP-C Work Phone: [facility] 04-16-2025 15:40-0400 Body mass index (BMI) [Ratio] 29.8 kg/m2 Stephanie Catalan FUNERAL ASSISTANT-C Work Phone: [facility] 04-16-2025 15:40-0400 Body temperature 98.2 [degF] Stephanie Alayna FUNERAL ASSISTANT-C Work Phone: [facility] 04-16-2025 15:40-0400 Body weight 60.32 kg Stephanie Catalan FUNERAL ASSISTANT-C Work Phone: [facility] 04-16-2025 15:40-0400 Diastolic blood pressure 81 mm[Hg] Stephanie Catalan FUNERAL ASSISTANT-C Work Phone: [facility] 04-16-2025 15:40-0400 Heart rate 73 /min Stephanie Catalan FUNERAL ASSISTANT-C Work Phone: [facility] 04-16-2025 15:40-0400 Respiratory rate 14 /min Stephanie Catalan FUNERAL ASSISTANT-C Work Phone: [facility] 04-16-2025 15:40-0400 SaO2% (BldA) [Mass fraction] 99 % Stephanie Alayna FUNERAL ASSISTANT-C Work Phone: [facility] 04-16-2025 15:40-0400 Systolic blood pressure 130 mm[Hg] Stephanie Ovallesmer FUNERAL ASSISTANT-C Work Phone: [facility] 07-17-2024 15:08-0400 Body height 142.2 cm Petra Garcia MD Work Phone: [facility] 07-17-2024 15:08-0400 Body mass index (BMI) [Ratio] 27.8 kg/m2 Petra Garcia MD Work Phone: [facility] 07-17-2024 15:08-0400 Body weight 56.25 kg Petra Garcia MD Work Phone: [facility] 07-17-2024 15:08-0400 Diastolic blood pressure 80 mm[Hg] Petra Garcia MD Work Phone: [facility] 07-17-2024 15:08-0400 Systolic blood pressure 123 mm[Hg] Petra Garcia MD Work Phone: [facility] 04-09-2024 12:39-0400 Body height 144.78 cm [facility] 04-09-2024 12:39-0400 Body mass index (BMI) [Ratio] 26.6 kg/m2 [facility] 04-09-2024 12:39-0400 Body temperature 98.4 [degF] [facility] 04-09-2024 12:39-0400 Body weight 55.79 kg [facility] 04-09-2024 12:39-0400 Heart rate 104 /min [facility] 04-09-2024 12:39-0400 Respiratory rate 18 /min [facility] 04-09-2024 12:39-0400 SaO2% (BldA) [Mass fraction] 99 % [facility] 10-04-2023 12:40-0500 Body height 144.78 cm Stephanie Moore Other [facility] 10-04-2023 12:40-0500 Body mass index (BMI) [Ratio] 28.13 kg/m2 Stephanie Moore Other [facility] [employer] Other 10-04-2023 12:40-0500 Body temperature 97.9 [degF] Stephanie Moore Other [facility] [employer] Other 10-04-2023 12:40-0500 Body weight 58.97 kg Stephanie Moore Other [facility] [employer] Other 10-04-2023 12:40-0500 Body weight 58.96 kg REYNA Catalan Work Phone: [facility] 10-04-2023 12:40-0500 Diastolic blood pressure 81 mm[Hg] Stephanie Moore Other [facility] 01-17-2024 12:40-0500 Respiratory rate 18 /min Stephanie Moore Other [facility] [employer] Other 10-04-2023 12:40-0500 SaO2% (BldA) [Mass fraction] 94 % Stephanie Moore Other [facility] [employer] Other 10-04-2023 12:40-0500 Systolic blood pressure 120 mm[Hg] Stephanie Birminghammond Other [facility] 02-11-2022 09:50-0400 Body temperature 98.4 [degF] DO Vishnu Itzkowitz Work Phone: [facility] 02-11-2022 09:50-0400 Diastolic blood pressure 74 mm[Hg] DO Vishnu Itzkowitz Work Phone: [facility] 02-11-2022 09:50-0400 Heart rate 94 /min DO Vishnu Itzkowitz Work Phone: [facility] 02-11-2022 09:50-0400 Respiratory rate 16 /min DO Vishnu Itzkowitz Work Phone: [facility] 02-11-2022 09:50-0400 SaO2% (BldA) [Mass fraction] 98 % DO Vishnu Itzkowitz Work Phone: [facility] 02-11-2022 09:50-0400 Systolic blood pressure 124 mm[Hg] DO Vishnu Itzkowitz Work Phone: [facility] Encounters Encounter Date Encounter Type Care Provider Facility Start: 04-16-2025 End: 04-16-2025 ambulatory Stephanie Catalan FUNERAL ASSISTANT-C Work Phone: [facility] Work Phone: Start: 04-16-2025 End: 04-16-2025 Patient encounter procedure aDnica Machado [facility] -[facility] Work Phone: Start: 07-17-2024 End: 07-17-2024 ambulatory PETRA GARCIA Not Available Start: 07-17-2024 End: 07-17-2024 Office outpatient new 30 minutes Petra Garcia MD Work Phone: [facility] Comment on above: Tonsil stone (Primar y Dx) Start: 07-17-2024 End: 07-17-2024 Telephone encounter Allan Cody CNM Work Phone: [facility] Start: 04-09-2024 End: 04-09-2024 ambulatory [facility] Work Phone: Start: 04-09-2024 End: 04-09-2024 Patient encounter procedure [facility] Work Phone: Start: 12-06-2023 End: 12-06-2023 ambulatory WYATT ADA Not Available Start: 11-29-2023 End: 11-29-2023 ambulatory Stephanie Radha Catalan Facility:[facility] Start: 11-29-2023 End: 11-29-2023 ambulatory FUNERAL ASSISTANT-C Stephanieyanira Catalan Work Phone: [facility] Work Phone: Start: 11-29-2023 End: 11-29-2023 Departed Referred FUNERAL ASSISTANT-C Stephanie Catalan Work Phone: [facility] Start: 11-07-2023 End: 11-07-2023 ambulatory Stephanieyanira Catalan Facility:[facility] Start: 11-07-2023 End: 11-07-2023 ambulatory FUNERAL ASSISTANT-C Stephanie Radha Alayna Work Phone: [facility] Work Phone: Start: 11-07-2023 End: 11-07-2023 Departed Referred FUNERAL ASSISTANT-C Stephanieyanira Catalan Work Phone: [facility] Start: 11-06-2023 End: 11-06-2023 ambulatory SHAUNA MAEGAN Not Available Start: 10-09-2023 End: 10-09-2023 ambulatory SHAUNA MAEGAN Not Available Start: 10-04-2023 (URG) Urgent Care Visit Stephanie grant [facility] Start: 10-04-2023 End: 10-04-2023 ambulatory Stephanie Moore Other [facility] Other Start: 10-04-2023 End: 10-04-2023 Patient encounter procedure FUNERAL ASSISTANT-C Stephanie Catalan Work Phone: [facility]- Start: 09-26-2023 End: 09-27-2023 Emergency department patient visit MARIBETH Luis [facility] Start: 08-14-2023 End: 08-14-2023 ambulatory ALLAN CODY Not Available Start: 09-19-2022 ambulatory STEPHANIE CATALAN Facility: H1 Start: 07-01-2022 End: 07-02-2022 ambulatory STEPHANIE CATALAN Facility:H1 Start: 02-11-2022 End: 02-11-2022 Admission to same day surgery center DO Vishnu Santana Work Phone: [facility] for Breast Car Start: 02-10-2022 ambulatory STEPHANIE CATALAN Facility: H1 Start: 02-08-2022 Encounter for genera l adult medical examination without abnormal findings STEPHANIE CATALAN [facility] Start: 02-02-2022 End: 02-03-2022 ambulatory STEPHANIE CATALAN Facility:H1 Start: 02-02-2022 End: 02-03-2022 Encounter for general adult medical examination without abnormal findings STEPHANIE CATALAN Facility:H1 Procedures Date Procedure Procedure Detail Performing Clinician Start: 04-09-2024 Quick Strep (POC) Start: 02-11-2022 Ultrasonography of l eft breast DO Vishnu Itzkovishnutz Work Phone: Start: 02-11-2022 Mammography of left breast DO Vishnu Max Work Phone: Start: 02-11-2022 Ultrasonography of limb DO Vishnu Yvesusamamaureen Work Phone: Start: 02-11-2022 Core needle biopsy o f breast using ultrasound guidance DO [facility] [place] [employer] Work Phone: Start: 01-12-2022 Microscopic observat ion [Identifier] in Cervix by Cyto stain Allan Floro MATTHEW Work Phone: Plan of Treatment Date Care Activity Detail Author Start: 01-12-2027 Screening for malignant neoplasm of cervix [facility] Start: 01-12-2025 Screening for malignant neoplasm of cervix Pap Smear [facility] Start: 05-19-2024 Influenza vaccination Influenza Vaccine (#1) [facility] Patient Education Insect bites a nd stings - ED discharge instructions [facility] Work Phone: Payers Date Payer Category Payer Private Health Insurance [facility] [id number] 2022 Unknown [id number] 2012 Unknown [id number] 1988 Unknown [id number] 2.16.840.1.128250.3.579. 2.593 1988 Unknown [id number] 2.16840.1.667530.3.579. 2.593 1988 Unknown [id number] 2.16.840.1.615233.3.579. 2.593 1988 Unknown [id number] 2.16.840.1.610138.3.579. 2.593 1988 Unknown [id number] 2.16.840.1.469676.3.579. 2.1286 1988 Unknown [id number] 2.16.840.1.554258.3.579. 2.1286 1988 Unknown [id number] 2.16.840.1.663983.3.579. 2.1259 1988 Unknown [id number] 2.16.840.1.549107.3.579. 2.1259 1988 Unknown [id number] 2.16.840.1.707797.3.579. 2.1259 1988 Unknown [id number] 2.16.840.1.309547.3.579. 2.9 1988 Unknown [id number] 2.16.840.1.528003.3.579. 2.1259 1959 Self-pay [id number] Unknown [id number] [id number] Unknown [id number] 2.16.840.1.493286.3.579. 2.531 Unknown [id number] 2.16.840.1.509636.3.579. 2.531 Social History Date Type Detail Facility Tobacco smoking stat us [facility] Unknown if ever smoked [facility] Work Phone: Start: 1990 Sex Assigned At Female F [facility] Start: 12-06-2023 End: 07-17-2024 Sex Assigned At [facility] Start: 09-04-2018 End: 09-04-2018 Tobacco smoking status MEIS Never smoked tobacco (finding) [facility] Start: 08-14-2023 Tobacco use and exposure Smokeless tobacco non-user [facility] Start: 12-06-2023 End: 07-17-2024 Alcoholic beverage intake Ex-drinker (finding) [facility] Start: 12-06-2023 End: 07-17-2024 History of Social function [facility] Start: 04-26-2023 Alcohol Comment Caffeine: none [facility] Start: 12-03-2023 Gender identity Identifies as female gender (finding) [facility] Sex Female (finding) [facility] Telephone encounter Note 07-17-2024 Telephone Encounter - Macy Lewispkins - 07/17/2024 3:06 PM EDT Note Date & Type Note Facility 07-17-2024 Telephone encount er Note Pt called earlier today and wanted to schedule an Established Yearly Exam with Chary. I made it for this coming Sunday 07/22 at 6 pm April let me know that I needed to make it for 1 - 2 months out. I called pt back to let her know that we need to rs. She is going to call us back, as she was at a drs appt. I canceled the appt for 07/22 and when she calls we can schedule another exam for 1 - 2 months. Thank you [facility] Note 07-17-2024 Telephone Encounter - Macy Lewispkins - 07/17/2024 3:06 PM EDT Note Date & Type Note Facility 07-17-2024 Miscellaneous Notes Formattin g of this note might be different from the original. Pt called earlier today and wanted to schedule an Established Yearly Exam with Chary. I made it for this coming Sunday 07/22 at 6 pm April let me know that I needed to make it for 1 - 2 months out. I called pt back to let her know that we need to rs. She is going to call us back, as she was at a drs appt. I canceled the appt for 07/22 and when she calls we can schedule another exam for 1 - 2 months. Thank you documented in this encounter [facility] History of Present illness Narrative 07-17-2024 Petra Garcia MD - 07/17/2024 3:00 PM EDT Note Date & Type Note Facility 07-17-2024 History of Presen t illness Narrative Subjective Patient ID: Liv Fortune is a 34 y.o. female who presents for Tonsillolith Pt reports she has been getting tonsil stones for the past year. Debrides with the pointed part of a floss stick. Pt states she is tired of debriding them. Review of Systems All other systems reviewed and are negative. Family History Problem Relation Name Age of Onset Breast cancer Other Paternal Aunt No Known Problems Son No Known Problems Son Colon cancer Neg Hx Ovarian cancer Neg Hx Active Ambulatory Problems Diagnosis Date Noted No Active Ambulatory Problems Resolved Ambulatory Problems Diagnosis Date Noted No Resolved Ambulatory Problems Past Medical History: Diagnosis Date Breast lump Family history of cancer Past Surgical History: Procedure Laterality Date BREAST BIOPSY Left 2020 CHOLECYSTECTOMY ENDOMETRIAL ABLATION 11/29/2023 PAP SMEAR 2020 abnormal -HPV SALPINGECTOMY Bilateral 11/29/2023 No Known Allergies Current Outpatient Medications on File Prior to Visit Medication Sig Dispense Refill diclofenac (Voltaren) 75 MG EC tablet 1 tablet Orally Twice a day as needed for 30 days divalproex (Depakote) 500 MG EC tablet Take 500 mg by mouth 1 time. ibuprofen 800 MG tablet [DISCONTINUED] HYDROcodone-acetaminophen ([place]) 5-325 MG tablet TAKE 1 TABLET BY MOUTH EVERY 4 HOURS. [DISCONTINUED] traZODone (Desyrel) 50 MG tablet 1 (one) time each day at the same time [DISCONTINUED] norgestimate-ethinyl estradiol (Estarylla) 0.25-35 MG-MCG tablet Take 1 tablet by mouth in the morning. 90 tablet 0 No current facility-administered medications on file prior to visit. Objective Last Recorded Vitals Vitals: 07/17/24 1508 BP: 123/80 ENT Physical Exam Constitutional Appearance: patient appears well-developed, well-nourished and well-groomed, Head and Face Appearance: head appears normal and face appears atraumatic; Ear Ear Canals: right ear canal normal; left ear canal normal; Tympanic Membranes: right tympanic membrane normal; left tympanic membrane normal; Nose External Nose: nares patent bilaterally; external nose normal; Internal Nose: septum normal; Oral Cavity/Oropharynx Tongue: normal; Oral mucosa: normal; Hard palate: normal; Soft palate: normal; Tonsils: normal; Neck Neck: neck normal; neck palpation normal; Thyroid: thyroid normal; Respiratory Inspection: breathing unlabored; normal breathing rate; Auscultation: breath sounds are clear; Cardiovascular Inspection: extremities are warm and well perfused; no peripheral edema present; Auscultation: regular rate and rhythm; Assessment/Plan Diagnoses and all orders for this visit: Tonsil stone Pt getting frequent tonsil stones. Discussed conservative management with peroxide gargles and Water Pik debridement of crypts. I no longer do tonsillectomies for tonsil stones due to the risk of life-threatening bleeding documented in this encounter [facility] Evaluation note 10-04-2023 Note Date & Type [...] Acute bronchitis, unspecified organism (ICD-10 - J20.9) [facility] Other Evaluation note Note Date & Type Note Facility Evaluation note No assessment information availa [facility] Work Phone: Evaluation note Note Date & Type Note Facility Evaluation note Diagnosis Onset Date Tonsil stone acute [facility] Work Phone: Evaluation note Note Date & Type Note Facility Evaluation note Diagnosis Tonsil stone- Primary Other chronic disease of tonsils and adenoids documented in this encounter [facility] History general Narrative - Reported Note Date & Type Note Facility History general Narrative - Reported Type Medical History anxiety Medical History bipolar Surgical History gall bladder Hospitalization History childbirth [facility] Incubator Other Reason for referral (narrative) Note Date & Type Note Facility Reason for referral (narrative) No reason for referral information available [facility] Work Phone: Summary Purpose Family History No Family History Records FoundNo Family History Records FoundNo Family History Records FoundNo Family History Records FoundNo Family History Records Found Advance Directives Advance Directive Response Recorded Date/ Time Advance Directives No February 09 3:28pm Advance Directive Response Recorded Date/ Time Advance Directives No February 09 2:28pm Chief Complaint and Reason for Visit Chief Complaint breast mass Chief Complaint Cough, Left Ear Ache , Diagnosed With Pne Unknown Chief Complaint Cough, Left Ear Ache , Diagnosed With Pne Unknown Unknown Chief Complaint Sore throat Reason for Visit Tonsil stone Chief Complaint Admit Date Bee sting to left wrist, swelling March 202024 3:39pm Additional Source Comments INFORMATION SOURCE (unrecogn ized section and content) DATE CREATED AUTHOR 01/28/2022 [facility] dical Specialist DATE CREATED AUTHOR AUTHOR'S ORGANIZ ATION 09/19/2022 [facility] DATE CREATED AUTHOR AUTHOR'S ORGANIZ ATION 10/01/2023 [facility] DATE CREATED AUTHOR AUTHOR'S ORGANIZ ATION 12/01/2023 [facility] DATE CREATED AUTHOR AUTHOR'S ORGANIZ ATION 07/19/2024 [facility] d[facility] Specialists EPIC Care Teams (unrecognized sec tion and content) [...] Bernadette marcelo 2023 End: November 07, 2023 Team Status: Inactive Member Role Status Dates REYNA Gaxiola Primary Care Provider Active Start: November 29, 2023 End: November 29, 2023 Shauna Issa Attending Provider Active Start: [facility] 2023 End: November 29, 2023 Team Status: Inactive Member Role Status Dates REYNA Gaxiola Primary Care Provider Active Start: April 09, 2024 End: April 09, 2024 Danica Kirk APRN Attending Provider Active S tart: April 09, 2024 End: April 09, 2024 Team Status: Inactive Member Role Status Dates REYNA Gaxiola Primary Care Provider Active Start: April 16, 2025 End: April 16, 2025 Danica Kirk APRN Attending Provider Active S tart: April 16, 2025 End: April 16, 2025 Goals (unrecognized section and content) Goals may be documented in a n alternate sectionNo InformationGoals may be documented in an alternate sectionGoals may be documented in an alternate sectionGoals may be documented in an alternate sectionGoals may be documented in an alternate section REASON FOR VISIT (unrecogniz ed section and content) Reason Comments Tonsillolith FOR RECORDS PERTAINING TO PATIENTS WHO ARE [...] BE BASED ON THE PRIMARY CLINICAL RECORDS. [employer] provides no warranty or guarantee of the accuracy or completeness of information in this document.
--- OUTSIDE RECORDS SUMMARY | 2025-04-17 06:02 | XMS_ITS | Encounter Summary ---
Author Organization [facility] Address [address] [place] [address] Care Team Providers Care Assistant Store Director Name Role Phone Unavailable Primary Care Provider Unavailabl e Reason for Visit * Reason Comments Med Refill Encounter Details Date Type Department Care Team (Late st Contact Info) Description 05/23/2023 Refill [facility] [address] [place] [address] Valencia Cody, MILA [address] [place], [place] [id number] Unwanted fertility Social History Tobacco Use Types Packs/Day Years Used Date Smoking Tobacco: Never Alcohol Use Standard Drinks/Week Comments Never 0 (1 standard drink = 0.6 oz pur e alcohol) Caffeine: none Comments Unknown Sex and Gender Information Value Date Recorded Sex Assigned at Female 12/03/2023 11:28 PM EDT Legal Sex Female 11:34 PM EDT Gender Identity Female 12/03/2023 11:28 PM EDT Sexual Orientation Not on file 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
--- OUTSIDE RECORDS SUMMARY | 2025-04-17 06:02 | XMS_ITS | Clinical Summary ---
Author Organization [facility] Healthcare Address [address] [place] [address] Care Team Providers Care Title Vehicle Service Attendant Name Role Phone Unavailable Primary Care Provider Unavailabl e Allergies No known active allergies Medications divalproex (Depakote) 500 MG EC tablet Take 500 mg by mouth 1 time. Active diclofenac (Voltaren) 75 MG EC tablet 1 tablet Orally Twice a day as needed for 30 days 05/19/2023 Active ibuprofen 800 MG tablet 11/29/2023 Active Family History Medical History Relation Name Comments Breast cancer Other Paternal Aunt No Known Problems Son 1 No Known Problems Son 2 Colon cancer Neg Hx Ovarian cancer Neg Hx Relation Name Status Comments Brother Alive Father Alive Maternal Grandfather Maternal Grandmother Mother Alive Other Paternal Grandfather Paternal Grandmother Sister Alive Son 1 Alive Son 2 Alive Social History Tobacco Use Types Packs/Day Years Used Date Smoking Tobacco: Never Smokeless Tobacco: Never Tobacco Cessation:Counseling Given: Not Answered Alcohol Use Standard Drinks/Week Comments Not Currently 0 (1 standard drink = 0.6 oz pur e alcohol) Caffeine: none Comments No Sex and Gender Information Value Date Recorded Sex Assigned at Female 12/03/2023 11:28 PM EDT Legal Sex Female 11:34 PM EDT Gender Identity Female 12/03/2023 11:28 PM EDT Sexual Orientation Not on file 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 file Not on file Not on file Last Filed Vital Signs Vital Sign Reading Time Taken Comments Blood Pressure 123/80 07/17/2024 3:08 PM EDT Pulse - - Temperature - - Respiratory Rate - - Oxygen Saturation - - Inhaled Oxygen Concentration - - Weight 56.2 kg (124 lb) 07/17/2024 3:08 PM EDT Height 142.2 cm (4' 8 ) 07/17/2024 3:08 PM EDT Body Mass Index 27.8 07/17/2024 3:08 PM EDT Plan of Treatment Health Maintenance Due Date Last Done Comments Pap Smear 01/12/2025 01/12/2022 Influenza Vaccine (#1) 2025 Cervical Cancer Screening 01/12/2027 HPV/Cotest 01/12/2027 01/12/2022 Procedures Procedure Name Priority Date/Time Associated Diagnosis Comments Q - THINPREP(R) TIS AND HPV MRNA E6/E7 RFL HPV 16,18/45 Routine 01/12/2022 PAP SMEAR Routine 01/12/2022 12:00 AM EDT from Last 3 Months or Most Recently Relevant to Health Maintenance Results * (ABNORMAL) Q - THINPREP(R) TIS AND HPV MRNA E6/E7 RFL HPV 16,18/45 (01/12/2022) CLINICAL INFORMATION: None given [facility] Comment:[HFK] LMP: NONE GIVEN [facility] Comment:[HFK] PREV. PAP: NONE GIVEN [facility] Comment:[HFK] PREV. BX: NONE GIVEN [facility] Comment:[HFK] SOURCE: None given [facility] Comment:[HFK] STATEMENT OF ADEQUACY: SEE NOTE [facility] Comment: Satisfactory for evaluation. Endocervical/transformation zone component present. [HFK] GENERAL CATEGORIZATION: EPITHELIAL CELL ABNORMALITY(A) [facility] Comment:[HFK] INTERPRETATION/RES ULT: Atypical Squamous Cells of Undetermined Significance (ASC-US)(A) [facility] Comment:[HFK] COMMENT: SEE NOTE [facility] Comment: This Pap test has been evaluated with computer assisted technology. Suggest clinical correlation and follow-up as clinically appropriate [HFK] HONING MACHINE SET UP OPERATOR: SEE NOTE NO [facility] Comment: PCJ, SCT(ASCP) CT screening location: [place] [address]. [HFK] PATHOLOGIST: SEE NOTE [facility] Comment: Mikey York MD Board Certified in Anatomic Pathology and Cytopathology (electronic signature) For questions regarding this report call Anatomic Pathology at [phone] Mieky York MD, Set Up Mold Technician [facility] [place], [place] [HFK] COMMENT SEE NOTE [facility] Comment: EXPLANATORY NOTE: The Pap is a screening test for cervical cancer. It is not a diagnostic test and is subject to false negative and false positive results. It is most reliable when a satisfactory sample, regularly obtained, is submitted with relevant clinical findings and history, and when the Pap result is evaluated along with historic and current clinical information. [HFK] HPV MRNA E6/E7 Not Detected Not Detected [facility] Comment: Methodology: Client Services Account Manager-Mediated Amplification This assay detects E6/E7 viral messenger RNA (mRNA) from 14 high-risk HPV types (16,18,31,33,35,39,45,51,52,56,58,59,66,68). The analytical performance characteristics of this assay have been determined by [facility]. The modifications have not been cleared or approved by the FDA. This assay has been validated pursuant to the CLIA regulations and is used for clinical purposes. For additional information, please refer to http://education.Gazoob.HashParade/faq/GOH447n7 (This link if provided for information/ educational purposes only.) [O6K] 01/12/2022 Valencia Janelle Technical Machine [facility] Final Result [facility] * Pap Smear (01/12/2022 12:00 AM EDT) Swab Cervical swab / Unknown Valencia Janelle [facility] CYTOLOGY ORDERABLES Tamica l Result EXTERNAL LAB from Last 3 Months or Most Recently Relevant to Health Maintenance Insurance [employer]
--- OUTSIDE RECORDS SUMMARY | 2025-04-17 06:02 | XMS_ITS | Encounter Summary ---
Author Organization [facility] Address [id number] [place] [address] Care Team Providers Care Ophthalmic Asst Name Role Phone Stephanie Jimenez KNITTING MACHINE FIXER HEAD-RADIO BROADCASTER Primary Care Provider Encounter Details Date Type Department Care Team (Late st Contact Info) Description 03/01/2022 Telephone [facility] [address] [place] [address] Rosanna Arambula RMA Social History Tobacco Use Types Packs/Day Years Used Date Smoking Tobacco: Never Smokeless Tobacco: Never Alcohol Use Standard Drinks/Week Comments Not Currently 0 (1 standard drink = 0.6 oz pur e alcohol) Childcare Answer Date Recorded Childcare Unknown 02/27/2019 Employment Answer Date Recorded Employment Unknown 02/27/2019 Comments Unknown Sex and Gender Information Value Date Recorded Sex Assigned at Female 12/03/2023 11:29 PM EDT Legal Sex Female 11:38 AM EDT Gender Identity Female 12/03/2023 11:29 PM EDT Sexual Orientation Not on file documented as of this encounter Miscellaneous Notes * Telephone Encounter - ANNI Pearce - 03/01/2022 10:23 AM EDT Called and left a message for the patient to inform her that Dr Pascual is back from medical leaveand asked to give the office a call back to reschedule. documented in this encounter Plan of Treatment Not on file documented as of this encounter Visit Diagnoses Not on filedocumented in this encounter Additional Health Concerns Infection Onset Date Last Indicated Resolved Time COVID-19 Positive 07/09/2022 07/09/2022 07/30/2022 11:12 PM EST documented as of this encounter Care Teams Ophthalmic Asst Relationship Specialty Start Date End Date Stephanie Jimenez APRN-RADIO BROADCASTER [address] [place] [address] PCP - General Family Medicine 02/28/21 documented as of this encounter
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
--- OUTSIDE RECORDS SUMMARY | 2025-04-17 06:02 | XMS_ITS | Encounter Summary ---
Author Organization [employer] Address [id number] [address] [place] [address] Care Team Providers Care Payroll Coordinator Name Role Phone Stephanie Jimenez ASSISTANT CONSTRUCTION SUPERINTENDENT-BUGGYMAN Primary Care Provider Encounter Details Date Type Department Care Team (Late st Contact Info) Description 03/16/2022 Telephone [facility] [address] [place] [address] Rosanna Arambula RMA Social History [...] * Telephone Encounter - ANNI Pearce - 03/16/2022 9:44 AM EDT Called and left a second message to inform patient that Dr Pascual is back in the office. Asked togive the office a call back if she would like to set up an appointment. documented in this encounter Plan of Treatment Not on file documented as of this encounter Visit Diagnoses Not on filedocumented in this encounter Additional Health Concerns Infection Onset Date Last Indicated Resolved Time COVID-19 Positive 07/09/2022 07/09/2022 07/30/2022 11:12 PM EST documented as of this encounter Care Teams Payroll Coordinator Relationship Specialty Start Date End Date Stephanie Jimenez APRN-BUGGYMAN [address] [place] [address] PCP - General Family Medicine 02/28/21 documented as of this encounter
[2025-04-17] MEDS: PREDNISONE 10 MG TABLET 60 MG PO (06:34)
[2025-04-17] MEDS: FAMOTIDINE 20 MG TABLET PO (06:34)
== END 2025-04-17 06:43 | disposition home or self-care (01) ==
PROVIDERS: Emergency Provider Emergency Medicine; PCP Nurse Practitioner Family
DX: T63.441A Toxic effect of venom of bees, accidental (unintentional), initial encounter (principal); M79.89 Other specified soft tissue disorders; Z90.49 Acquired absence of other specified parts of digestive tract
CPT/HCPCS: 99283; J7512